=== PATIENT | female | born 1965 | race Hispanic/Latino ===

== ENCOUNTER 2021-04-03 22:15 | Emergency (ER) | payer OTHER, SELFPAY ==
[2021-04-03 22:17] VITALS: BP 153/83; PULSE 80; RESP 18; TEMP 37.1; O2SAT 100
[2021-04-03 22:36] LABS: RBC Urine 30-100/HPF (0-5/HPF)
[2021-04-03 22:37] LABS: Squamous Epithelial Cell Urine 1-5 /HPF (0-5/HPF); WBC Urine 30-100/HPF (0-5/HPF)
[2021-04-03 22:38] LABS: Bacteria Urine Moderate (10-30); Culture Indicated Urine Specimen Cultured
--- NOTE | 2021-04-03 22:47 | ED_ITS ---
HPI - General Adult General Chief complaint: Urogenital-Female Stated complaint: PEEING BLOOD UTI Time Seen by Provider: 04/03/21 22:43 Source: patient Mode of arrival: Ambulatory Limitations: no limitations History of Present Illness HPI narrative: Patient is a 56-year-old female here for evaluation of blood in her urine and dysuria and frequency. States the symptoms started earlier today. Feels fairly uncomfortable with urinating. No back pain. No vomiting. Related Data Home Medications Medication Instructions Recorded Confirmed alpha lipoic acid 200 mg capsule 200 mg PO DAILY 08/11/20 08/11/20 ascorbic acid 100 mg-elderberry tab PO 08/11/20 08/11/20 fruit 50 mg chewable tablet coenzyme Q10 200 mg/gram oral mg PO 08/11/20 08/11/20 powder gabapentin 400 mg capsule 400 mg PO TID 08/11/20 08/11/20 loratadine 10 mg tablet 10 mg PO DAILY 08/11/20 08/11/20 metoprolol tartrate 50 mg tablet 50 mg PO BID 08/11/20 08/11/20 milk thistle 150 mg capsule 300 mg PO DAILY 08/11/20 08/11/20 multivitamin 1 cap PO DAILY 08/11/20 08/11/20 omega-3 fatty acids 1,000 mg 1,000 mg PO DAILY 08/11/20 08/11/20 capsule tramadol 50 mg tablet 50 mg PO DAILY PRN 08/11/20 08/11/20 turmeric 400 mg capsule mg PO 08/11/20 08/11/20 Previous Rx's Medication Instructions Recorded phenazopyridine [Pyridium] 100 mg PO TID PRN #6 tab 04/03/21 sulfamethoxazole 800 1 tab PO BID #10 tab 04/03/21 mg-trimethoprim 160 mg tablet sulfamethoxazole-trimethoprim 1 tab PO BID 3 Days #6 tab 04/03/21 [Bactrim DS] Allergies Allergy/AdvReac Type Severity Reaction Status Date / Time droperidol [From Inapsine] Allergy Verified 08/11/20 13:10 prochlorperazine Allergy Verified 08/11/20 13:10 [From Compazine] Review of Systems Constitutional Constitutional: Reports fatigue Genitourinary Genitourinary: Reports hematuria, Reports dysuria, Reports urinary hesitancy and Reports urinary urgency Genitourinary: Reports hematuria, Reports dysuria, Reports urinary hesitancy and Reports urinary urgency Musculoskeletal Musculoskeletal: Reports system reviewed and no additional complaints, except as documented Endocrine Endocrine: Reports fatigue Hematologic/Lymphatic On Anticoagulants: No Patient History Medical History Emphysema lung Liver enzyme elevation Middle lobe syndrome Peripheral neuropathy Surgical History History of lung surgery Social History Smoking Status: Never smoker Smoking Status: Never smoker Exam Initial Vital Signs Initial Vital Signs: Vital Signs Temperature 98.7 F 04/03/21 22:17 Pulse Rate 80 04/03/21 22:17 Respiratory Rate 18 04/03/21 22:17 Blood Pressure 153/83 H 04/03/21 22:17 Pulse Oximetry 100 04/03/21 22:17 Const General: cooperative, healthy appearing and comfortable Resp Effort & Inspection: normal respiratory effort Cardio Rate: regular rate Skin Lesions: no lesions Rashes: no rashes Neuro General: patient alert and patient awake Extrem General: normal to inspection Course Orders Ordered: ED Orders 04/03/21 22:29 Urine Culture Stat Urine Microscopic Stat Discontinued Medications Phenazopyridine HCl (Phenazopyridine 100 Mg Tablet) 100 mg PO NOW ONE Stop: 04/03/21 22:49 Last Admin: 04/03/21 22:55 Dose: 100 mg Documented by: SHERON Trimethoprim/Sulfamethoxazole (Trimeth/Sulfa 160/800 (Ds) Tablet) 1 tab PO NOW ONE Stop: 04/03/21 22:49 Last Admin: 04/03/21 22:55 Dose: 1 tab Documented by: SHERON Vital Signs Vital signs: Vital Signs - 8 hr 04/03/21 22:17 Temperature 98.7 F Pulse Rate 80 Respiratory Rate 18 Blood Pressure 153/83 H Pulse Oximetry 100 Medical Decision Making Lab Data Labs: Lab Results 04/03/21 Range/Units 22:29 Urine RBC 30-100/hpf H (0-5/HPF) Urine WBC 30-100/hpf H (0-5/HPF) Ur Squamous Epith Cells 1-5 /hpf (0-5/HPF) Urine Bacteria Moderate (10-30) H (None) Ur Culture Indicated? Specimen cultured Urine Dip Bedside Urine Glucose Negative Bedside Urine Bilirubin - Negative Bedside Urine Ketone - Negative Urine Specific [place] 1.010 Bedside Urine Occult Blood +++ Bedside Urine pH 6 Bedside Urine Protein + 30 Bedside Urine Urobilinogen - Negative Bedside Urine Nitrite - Negative Bedside Urine Leukocytes ++ 125 Esterase Point of care testing: Urine Dip Bedside Urine Glucose Negative Bedside Urine Bilirubin - Negative Bedside Urine Ketone - Negative Urine Specific [place] 1.010 Bedside Urine Occult Blood +++ Bedside Urine pH 6 Bedside Urine Protein + 30 Bedside Urine Urobilinogen - Negative Bedside Urine Nitrite - Negative Bedside Urine Leukocytes ++ 125 Esterase MDM Narrative Medical decision making narrative: History and physical exam and urinalysis today is consistent with urinary tract infection. Low suspicion for pyelonephritis. Will start on antibiotics and was given the 1st dose here in the emergency department. She was informed that there was a urine culture pending at the time of her discharge and will contact her if we need to change in antibiotics. She expressed understanding and agreement. Discharge Plan Departure Patient Disposition: Home Clinical Impression: Urinary tract infection, Hematuria Instructions: DI for Urinary Tract Infection (UTI) Activity Restrictions/Additional Instructions: Start taking the antibiotics as directed. Contact your primary provider for a follow-up. Return to the emergency department for any new or worsening symptoms Prescriptions: New phenazopyridine [Pyridium] 100 mg tablet 100 mg PO TID PRN (Reason: pain) Qty: 6 RF: 0 sulfamethoxazole-trimethoprim [Bactrim DS] 800-160 mg tablet 1 tab PO BID 3 Days Qty: 6 RF: 0 No Action sulfamethoxazole-trimethoprim [Bactrim DS] 800-160 mg tablet 1 tab PO BID Qty: 10 RF: 0 metoprolol tartrate 50 mg tablet 50 mg PO BID RF: 0 loratadine [Claritin] 10 mg tablet 10 mg PO DAILY RF: 0 gabapentin 400 mg capsule 400 mg PO TID RF: 0 alpha lipoic acid 200 mg capsule 200 mg PO DAILY RF: 0 tramadol 50 mg tablet 50 mg PO DAILY PRN (Reason: pain) RF: 0 H2Q CoQ10 200 mg/gram powder PO RF: 0 ascorbic acid-elderberry fruit [Airborne (elderberry)] 100-50 mg tablet,chewable PO RF: 0 multivitamin Capsule 1 cap PO DAILY RF: 0 turmeric 400 mg capsule PO RF: 0 omega-3 fatty acids [Fish Oil Concentrate] 1,000 mg capsule 1,000 mg PO DAILY RF: 0 milk thistle 150 mg capsule 300 mg PO DAILY RF: 0 Referrals: Reagan Steen ARNP [Primary Care Provider] -
[2021-04-03] MEDS: TRIMETH/SULFA 160/800 (DS) TABLET 1 TAB PO (22:55)
[2021-04-03] MEDS: PHENAZOPYRIDINE 100 MG TABLET PO (22:55)
== END 2021-04-03 22:57 | disposition home or self-care (01) ==
PROVIDERS: Emergency Provider Emergency Medicine; PCP Registered Nurse Diabetes Educator
DX: N39.0 Urinary tract infection, site not specified (principal); R31.9 Hematuria, unspecified; R30.0 Dysuria
CPT/HCPCS: 81003; 81015; 87086; 99283

== ENCOUNTER → 2021-08-14 14:51 | Outpatient (CLI) | payer OTHER, SELFPAY ==
[2021-08-14 15:52] LABS: Appearance Urine UA CLEAR; Bilirubin Urine UA NEGATIVE (NEGATIVE); Color Urine UA YELLOW; Glucose Urine UA NEGATIVE (Negative); Ketones Urine UA NEGATIVE (NEGATIVE); Leukocyte Esterase Urine UA NEGATIVE (NEGATIVE); Nitrite Urine UA NEGATIVE (Negative); Occult Blood Urine UA NEGATIVE (Negative); Protein Urine UA NEGATIVE (Negative); Urobilinogen Urine UA 0.2 E.U./dL (0.2)
[2021-08-14 16:04] LABS: Bacteria Urine None Seen; Culture Indicated Urine Cult Not Indicated; RBC Urine None Seen (0-5/HPF); Squamous Epithelial Cell Urine 0-1 /HPF (0-5/HPF); WBC Urine 0-1/HPF (0-5/HPF)
== END ==
PROVIDERS: PCP Registered Nurse Diabetes Educator; Referring Provider Registered Nurse Diabetes Educator; Visit Provider Registered Nurse Diabetes Educator
DX: R30.0 Dysuria (principal)
CPT/HCPCS: 81001; 87086

== ENCOUNTER → 2021-10-05 09:10 | Outpatient (CLI) | payer OTHER, SELFPAY ==
[2021-10-05 09:51] LABS: Hematocrit 41.3 % (36-46); Hemoglobin 14.2 g/dL (12.0-16.0); Mean Corpuscular HGB Conc 34.5 % (30-36); Mean Corpuscular Hemoglobin 28.8 PG (26-34); Mean Corpuscular Volume 83.6 fL (80-100); Platelet Count 279 X10^3/uL (150-400); Red Blood Cell Count 4.95 X10^6/uL (4.0-5.2); Red Cell Distribution Width 13.4 % (11.6-14.8); White Blood Cell Count 5.9 X10^3/uL (4.5-11.0)
[2021-10-05 10:34] LABS: Alanine Aminotransferase 34 IU/L (<35); Albumin 4.8 g/dL (3.5-5.0); Albumin Globulin Ratio 1.7 (1.0-2.8); Alkaline Phosphatase 72 U/L (38-126); Aspartate Aminotransferase 39 IU/L (14-36); BUN Creatinine Ratio 16.2 (6-22); Bilirubin Total 1.1 mg/dL (0.2-1.3); Blood Urea Nitrogen 11 mg/dL (7-17); Calcium 10.1 mg/dL (8.4-10.2); Carbon Dioxide 27 mmol/L (22-32); Chloride 104 mmol/L (98-107); Cholesterol 246 mg/dL (140-199); Estimated Glomerular Filt Rate > 60.0 mL/min (>60); Globulin 2.9 g/dL (1.7-4.1); Glucose 104 mg/dL (70-100); HDL Cholesterol 47 mg/dL (40-60); HEMOLYSIS < 15 (0-50); LDL Cholesterol Calculated 169 mg/dL (<100); Potassium 4.2 mmol/L (3.4-5.1); Sodium 140 mmol/L (137-145); Total Protein 7.7 g/dL (6.3-8.2); Triglycerides 150 mg/dL (35-150)
[2021-10-05 10:58] LABS: TSH w/ Reflex to FT4 1.57 uIU/mL (0.47-4.68)
[2021-10-06 03:05] LABS: Hepatitis B Surf AB Quant 761.6 mIU/mL (Immunity>9.9)
== END ==
PROVIDERS: PCP Registered Nurse Diabetes Educator; Referring Provider Registered Nurse Diabetes Educator; Visit Provider Registered Nurse Diabetes Educator
DX: R76.8 Other specified abnormal immunological findings in serum (principal); E78.2 Mixed hyperlipidemia; R74.8 Abnormal levels of other serum enzymes; I10 Essential (primary) hypertension
CPT/HCPCS: 36415; 80053; 80061; 84443; 85027; 86706

== ENCOUNTER → 2021-11-10 08:31 | Outpatient (ROUT) | payer OTHER, SELFPAY | PROVIDERS: PCP Registered Nurse Diabetes Educator; Visit Provider Registered Nurse Diabetes Educator | DX: N39.0 Urinary tract infection, site not specified (principal) | CPT/HCPCS: 87086 ==

== ENCOUNTER → 2022-08-03 10:56 | Outpatient (CLI) | payer OTHER, SELFPAY ==
--- NOTE | 2022-08-03 10:58 | DI.MG.S_ITS ---
BILATERAL DIGITAL SCREENING MAMMOGRAM 3D/2D WITH CAD: 08/03/2022 CLINICAL: Routine screening. Baseline exam by default. No prior exams were available for comparison. Both breasts are heterogeneously dense, which may obscure small masses (category c / 51-75% glandular tissue). Current study was also evaluated with a Computer Aided Detection (CAD) system. There are multiple oval asymmetries in the right breast inferior lateral quadrant middle depth. There is an oval high density focal asymmetry in the left breast at 12 o'clock middle depth. No other significant masses or calcifications are seen in either breast. IMPRESSION: INCOMPLETE: NEEDS ADDITIONAL IMAGING EVALUATION The multiple oval asymmetries in the right breast inferior lateral quadrant middle depth are indeterminate. Additional views with possible ultrasound are recommended. The oval high density focal asymmetry in the left breast at 12 o'clock middle depth is indeterminate. Additional views with possible ultrasound are recommended. Based on the Tyrer Cuzick model (a risk assessment model) the patient's lifetime risk is 10.1% and her 10 year risk is 3.9%. According to the ACR, ACS, and NCCN guidelines, an annual breast MRI exam along with mammogram is recommended if the patient's lifetime risk is 20% or greater. This exam was interpreted at Station ID: [id number]. NOTE: For mammograms, a report in lay terms will be sent to the patient. Approximately 15% of breast malignancies will not be visualized mammographically. In the management of a palpable breast mass, a negative mammogram must not discourage biopsy of a clinically suspicious lesion. Electronically Signed By: Dipti bravo/lola:08/03/2022 12:21:52 letter sent: Additional Imaging Needed ACR BI-RADS Category 0: Incomplete 3340F
== END ==
PROVIDERS: PCP Registered Nurse Diabetes Educator; Referring Provider Registered Nurse Diabetes Educator; Visit Provider Registered Nurse Diabetes Educator
DX: Z12.31 Encounter for screening mammogram for malignant neoplasm of breast (principal)
CPT/HCPCS: 77063; 77067

== ENCOUNTER 2022-08-13 18:43 | Emergency (ER) | payer OTHER, SELFPAY ==
[2022-08-13] VITALS (19 sets, daily range): BP systolic 157–227; BP diastolic 75–107; PULSE 64–90; RESP 14–25; TEMP 36.5; O2SAT 99–100; BMI 24.7
--- NOTE | 2022-08-13 19:01 | DI.RAD.S_ITS ---
PROCEDURE: XR CHEST 1V INDICATIONS: chest pain TECHNIQUE: One view of the chest was acquired. COMPARISON: None. FINDINGS: Surgical changes and devices: None. Lungs and pleura: Lungs are clear. No pleural effusions or pneumothorax. Mediastinum: Mediastinal contours appear normal. Heart size is normal. Bones and chest wall: No suspicious bony lesions. Overlying soft tissues appear unremarkable. IMPRESSION: No acute cardiopulmonary pathology. Dictated by: Sung Nair M.D. on 08/13/2022 at 19:23 Approved by: Sung Nair M.D. on 08/13/2022 at 19:23
[2022-08-13 19:13] LABS: Add Manual Diff / Slide Review NO; Basophils Absolute Auto 0 /uL (0-100); Basophils Percent Auto 0.5 % (0-2); Eosinophils Absolute Auto 100 /uL (0-450); Eosinophils Percent Auto 0.9 % (2-4); Hematocrit 41.7 % (36-46); Hemoglobin 14.6 g/dL (12.0-16.0); Lymphocytes Absolute Auto 2600 /uL (1100-4500); Lymphocytes Percent Auto 34.7 % (25-40); Mean Corpuscular Hemoglobin 29.4 PG (26-34); Mean Corpuscular Volume 83.9 fL (80-100); Monocytes Absolute Auto 400 /uL (0-900); Monocytes Percent Auto 5.4 % (3-14); Neutrophils Absolute Auto 4400 /uL (1500-7000); Neutrophils Percent Auto 58.5 % (50-75); Platelet Count 241 X10^3/uL (150-400); Red Blood Cell Count 4.97 X10^6/uL (4.0-5.2); Red Cell Distribution Width 13.8 % (11.6-14.8); White Blood Cell Count 7.5 X10^3/uL (4.5-11.0)
--- NOTE | 2022-08-13 19:16 | PC.NURSE ---
Iv placed by another nurse
--- NOTE | 2022-08-13 19:18 | ED_ITS ---
HPI - Chest Pain General Chief Complaint: Chest Pain Stated Complaint: chest pain Time Seen by Provider: 08/13/22 19:08 Source: patient and EMS Mode of arrival: EMS Limitations: no limitations History of Present Illness HPI narrative: 57-year-old female who arrived by EMS for evaluation of chest discomfort. She did take an aspirin prior to arrival. She stated that her symptoms started after she was moving some heavy pots of plants while at home. Describes it as a burning sharp sensation. It is improved from its onset but not completely resolved. Not worse with breathing or palpation. Has never had anything like this in the past. Does have a history of SVT. Does take metoprolol. Has not taken her metoprolol today. No history of high blood pressure. No lower extremity swelling Related Data Home Medications Medication Instructions Recorded Confirmed alpha lipoic acid 200 mg capsule 200 mg PO DAILY 08/11/20 08/09/22 ascorbic acid 100 mg-elderberry tab PO 08/11/20 08/09/22 fruit 50 mg chewable tablet (Airborne (elderberry)) coenzyme Q10 200 mg/gram oral mg PO 08/11/20 08/09/22 powder (H2Q CoQ10) gabapentin 400 mg capsule 400 mg PO TID 08/11/20 08/09/22 loratadine 10 mg tablet (Claritin) 10 mg PO DAILY 08/11/20 08/09/22 milk thistle 150 mg capsule 300 mg PO DAILY 08/11/20 08/09/22 multivitamin 1 cap PO DAILY 08/11/20 08/09/22 omega-3 fatty acids 1,000 mg 1,000 mg PO DAILY 08/11/20 08/09/22 capsule (Fish Oil Concentrate) tramadol 50 mg tablet 50 mg PO DAILY PRN pain 08/11/20 08/09/22 turmeric 400 mg capsule mg PO 08/11/20 08/09/22 Previous Rx's Medication Instructions Recorded albuterol sulfate 90 mcg/actuation 2 puff inhalation Q4-6H PRN 08/10/21 aerosol inhaler shortness of breath or wheezing #8.5 grams sulfamethoxazole 400 1 tab PO DAILY PRN prevention of 11/09/21 mg-trimethoprim 80 mg tablet UTI #30 tabs (Bactrim) metoprolol tartrate 50 mg tablet 50 mg PO BID #180 tabs 07/25/22 omeprazole 20 mg capsule,delayed 20 mg PO DAILY #90 caps 07/25/22 release trazodone 50 mg tablet 50 mg PO BEDTIME PRN insomnia #30 08/09/22 tabs Allergies Allergy/AdvReac Type Severity Reaction Status Date / Time droperidol [From Inapsine] Allergy Verified 08/13/22 19:01 prochlorperazine Allergy Verified 08/13/22 19:01 [From Compazine] Review of Systems Review of Systems ROS Unobtainable: All systems reviewed & are unremarkable except as noted in HPI and below Patient History Medical History Adjustment disorder with anxiety Adjustment insomnia Emphysema lung History of cardiac dysrhythmia Hypertension Impaired fasting blood sugar Liver enzyme elevation Middle lobe syndrome Mitral valve prolapse Mixed dyslipidemia Peripheral neuropathy Surgical History History of lung surgery Social History Smoking Status: Never smoker Smoking Status: Never smoker alcohol intake frequency: 0-2 drinks per day Substance Use Type: marijuana Exam Initial Vital Signs Initial Vital Signs: Vital Signs Blood Pressure 227/107 H 08/13/22 18:46 Const General: cooperative and comfortable HENMT Head: normal to inspection and normocephalic Chest Chest: No crepitus and No tenderness Resp Effort & Inspection: normal respiratory effort Auscultation: clear to auscultation bilaterally Cardio Rate: regular rate Rhythm: regular rhythm GI Inspection: normal to inspection Skin General: no rashes or lesions noted Neuro General: patient alert, patient awake, patient oriented x3 and moves all extremities Extrem General: normal to inspection and capillary refill normal Psych Appearance: grossly normal and well kempt Scores HEART Score Heart Score history: Slightly Suspicious Heart Score EKG: Non-Specific repolarization disturbance Heart Score Age: 45-64 years old Heart Score risk factors: 1-2 risk factors Heart Score troponin: < or = to normal limit Heart Score Total: 3 Course Orders Ordered: ED Orders 08/13/22 19:01 XR chest 1V Stat EKG-12 Lead Stat 08/13/22 20:55 Troponin & CK Cardiac Panel Stat Discontinued Medications Metoprolol Tartrate (Metoprolol Ir 25 Mg Tablet) 50 mg PO NOW ONE Stop: 08/13/22 20:33 Last Admin: 08/13/22 20:48 Dose: 50 mg Documented By: MARICRUZ Vital Signs Vital signs: Vital Signs - 8 hr 08/13/22 20:00 08/13/22 20:25 08/13/22 20:25 Pulse Rate 74 79 Respiratory Rate 15 16 Blood Pressure 168/89 H Pulse Oximetry 100 100 Oxygen Delivery Method 08/13/22 20:30 08/13/22 20:30 08/13/22 20:40 Pulse Rate 80 74 Respiratory Rate 25 H 16 Blood Pressure 159/91 H Pulse Oximetry 100 99 Oxygen Delivery Method 08/13/22 20:40 08/13/22 20:50 08/13/22 20:51 Pulse Rate 76 80 Respiratory Rate 21 20 Blood Pressure 159/91 H Pulse Oximetry 100 100 Oxygen Delivery Method 08/13/22 21:00 08/13/22 21:00 08/13/22 21:30 Pulse Rate 83 Respiratory Rate 22 Blood Pressure 183/92 H 157/93 H Pulse Oximetry 100 Oxygen Delivery Method 08/13/22 21:30 08/13/22 22:00 08/13/22 22:00 Pulse Rate 65 64 Respiratory Rate 16 16 Blood Pressure 164/88 H Pulse Oximetry 100 100 Oxygen Delivery Method Room Air 08/13/22 22:10 08/13/22 22:10 Pulse Rate 67 Respiratory Rate 20 Blood Pressure 165/88 H Pulse Oximetry 100 Oxygen Delivery Method MDM - Chest Pain Lab Data Attestation: I reviewed the patient's lab results. Result diagrams: 08/13/22 18:50 08/13/22 18:50 Labs: Lab Results 08/13/22 08/13/22 08/13/22 Range/Units 18:50 18:50 20:55 WBC 7.5 (4.5-11.0) X10^3/uL RBC 4.97 (4.0-5.2) X10^6/uL Hgb 14.6 (12.0-16.0) g/dL Hct 41.7 (36-46) % MCV 83.9 (80-100) fL MCH 29.4 (26-34) PG MCHC 35.0 (30-36) % RDW 13.8 (11.6-14.8) % Plt Count 241 (150-400) X10^3/uL Neut % (Auto) 58.5 (50-75) % Lymph % (Auto) 34.7 (25-40) % [place] % (Auto) 5.4 (3-14) % Eos % (Auto) 0.9 L (2-4) % Baso % (Auto) 0.5 (0-2) % Neut # (Auto) 4400 (8324-3172) /uL Lymph # (Auto) 2600 (5744-4603) /uL [place] # (Auto) 400 (0-900) /uL Eos # (Auto) 100 (0-450) /uL Baso # (Auto) 0 (0-100) /uL Sodium 140 (137-145) mmol/L Potassium 3.4 (3.4-5.1) mmol/L Chloride 104 (98-107) mmol/L Carbon Dioxide 24 (22-32) mmol/L BUN 11 (7-17) mg/dL Creatinine 0.68 (0.52-1.04) mg/dL Estimated GFR > 60 (>60) mL/min BUN/Creatinine Ratio 16.2 (6-22) Glucose 118 H (70-100) mg/dL Calcium 9.7 (8.4-10.2) mg/dL Magnesium 1.9 (1.6-2.3) mg/dL Total Bilirubin 1.5 H (0.2-1.3) mg/dL AST 43 H (14-36) IU/L ALT 44 H (<35) IU/L Alkaline Phosphatase 100 (38-126) U/L Total Creatine Kinase 71 56 (30-135) U/L CK-MB (CK-2) TNP TNP CK-MB (CK-2) Rel Index TNP TNP Troponin I < 0.012 < 0.012 (0.01-0.034) ng/mL Total Protein 8.4 H (6.3-8.2) g/dL Albumin 4.8 (3.5-5.0) g/dL Globulin 3.6 (1.7-4.1) g/dL Albumin/Globulin Ratio 1.3 (1.0-2.8) Lipase 78 (23-300) U/L Imaging Data Chest x-ray: Radiologist's Impression: [address] [address] XRay Report Signed Patient: Gloria Castano MR#: [id number] : 1965 Acct:[id number] Age/Sex: 57 / F Date of Service: 08/13/22 Loc: ED Accession Number: [id number] ?? Procedure: XR chest 1V Ordering Provider: Cody Meehan D.O. PROCEDURE:? XR CHEST 1V ? INDICATIONS:? chest pain ? TECHNIQUE:? One view of the chest was acquired.? ? COMPARISON:? None. ? FINDINGS:? ? Surgical changes and devices:? None.? ? Lungs and pleura:? Lungs are clear.? No pleural effusions or pneumothorax.? ? Mediastinum:? Mediastinal contours appear normal.? Heart size is normal.? ? Bones and chest wall:? No suspicious bony lesions.? Overlying soft tissues appear unremarkable.? ? IMPRESSION:? No acute cardiopulmonary pathology. ? ? Dictated by: Sung Nair M.D. on 08/13/2022 at 19:23 ? ? Approved by: Sung Nair M.D. on 08/13/2022 at 19:23?? ECG Data Attestation: I personally reviewed and interpreted this ECG as follows: Interpretation: Sinus rhythm Ventricular rate 82 Normal axis Normal QRS Normal QTC Nonspecific ST T wave changes MDM Narrative Medical decision making narrative: Low risk heart score, nonspecific changes in the EKG, troponins negative x2. Chest x-ray is unremarkable. Patient is now asymptomatic. Will discharge patient home with instructions to continue to take her blood pressure as she may need changes in his medications. She will contact her primary doctor to discuss further risk stratification. She was given return precautions. She expressed understanding and agreement. Discharge Plan Departure Patient Disposition: Home Clinical Impression: Atypical chest pain Instructions: DI for Atypical Chest Pain Activity Restrictions/Additional Instructions: Continue to take all of your medications as directed. Take your blood pressure at home like we discussed and contact your primary provider for a follow-up. Return to the emergency department for any new or worsening symptoms. Prescriptions: No Action omeprazole 20 mg capsule,delayed release(DR/EC) 20 mg PO DAILY Qty: 90 0RF metoprolol tartrate 50 mg tablet 50 mg PO BID Qty: 180 0RF trazodone 50 mg tablet 50 mg PO BEDTIME PRN (Reason: insomnia) Qty: 30 3RF Rx Instructions: If ineffective may increase to 2 tabs at bedtime as needed loratadine [Claritin] 10 mg tablet 10 mg PO DAILY gabapentin 400 mg capsule 400 mg PO TID alpha lipoic acid 200 mg capsule 200 mg PO DAILY tramadol 50 mg tablet 50 mg PO DAILY PRN (Reason: pain) H2Q CoQ10 200 mg/gram powder PO ascorbic acid-elderberry fruit [Airborne (elderberry)] 100-50 mg tablet,chewable PO multivitamin Capsule 1 cap PO DAILY turmeric 400 mg capsule PO omega-3 fatty acids [Fish Oil Concentrate] 1,000 mg capsule 1,000 mg PO DAILY milk thistle 150 mg capsule 300 mg PO DAILY Rx Instructions: give with meal/snack albuterol sulfate 90 mcg/actuation HFA aerosol inhaler 2 puff inhalation Q4-6H PRN (Reason: shortness of breath or wheezing) Qty: 8.5 3RF sulfamethoxazole-trimethoprim [Bactrim] 400-80 mg tablet 1 tab PO DAILY PRN (Reason: prevention of UTI) Qty: 30 3RF Rx Instructions: Take 1 tab after sex to prevent UTI Referrals: Reagan Steen ARNP [Primary Care Provider] - Visit Report Forms: Patient Portal/API
[2022-08-13 19:20] LABS: Alanine Aminotransferase 44 IU/L (<35); Albumin 4.8 g/dL (3.5-5.0); Albumin Globulin Ratio 1.3 (1.0-2.8); Alkaline Phosphatase 100 U/L (38-126); Aspartate Aminotransferase 43 IU/L (14-36); BUN Creatinine Ratio 16.2 (6-22); Bilirubin Total 1.5 mg/dL (0.2-1.3); Blood Urea Nitrogen 11 mg/dL (7-17); Calcium 9.7 mg/dL (8.4-10.2); Carbon Dioxide 24 mmol/L (22-32); Chloride 104 mmol/L (98-107); Creatine Kinase 71 U/L (30-135); Estimated Glomerular Filt Rate > 60 mL/min (>60); Globulin 3.6 g/dL (1.7-4.1); Glucose 118 mg/dL (70-100); HEMOLYSIS 24 (0-50); Lipase 78 U/L (23-300); Magnesium 1.9 mg/dL (1.6-2.3); Potassium 3.4 mmol/L (3.4-5.1); Sodium 140 mmol/L (137-145); Total Protein 8.4 g/dL (6.3-8.2)
[2022-08-13 19:31] LABS: Troponin I < 0.012 ng/mL (0.01-0.034)
[2022-08-13] MEDS: METOPROLOL IR 25 MG TABLET 50 MG PO (20:48)
[2022-08-13 21:29] LABS: Creatine Kinase 56 U/L (30-135)
[2022-08-13 21:42] LABS: Troponin I < 0.012 ng/mL (0.01-0.034)
== END 2022-08-13 22:18 | disposition home or self-care (01) ==
PROVIDERS: Emergency Provider Emergency Medicine; PCP Registered Nurse Diabetes Educator
DX: R07.89 Other chest pain (principal)
CPT/HCPCS: 36415; 71045; 80053; 82550; 83690; 83735; 84484; 85025; 93005; 99284

== ENCOUNTER 2022-08-19 20:07 | Observation (INO) | payer OTHER, SELFPAY ==
[2022-08-19] VITALS (50 sets, daily range): BP systolic 150–213; BP diastolic 80–101; PULSE 65–135; RESP 13–24; TEMP 36.9; O2SAT 97–100
--- NOTE | 2022-08-19 20:15 | DI.RAD.S_ITS ---
PROCEDURE: XR CHEST 1V INDICATIONS: chest pain TECHNIQUE: One view of the chest was acquired. COMPARISON: [facility], CR, XR CHEST 1V, 08/13/2022, 19:05. FINDINGS: Surgical changes and devices: None. Lungs and pleura: Lungs are clear. No pleural effusions or pneumothorax. Mediastinum: Mediastinal contours appear normal. Heart size is normal. Bones and chest wall: No suspicious bony lesions. Overlying soft tissues appear unremarkable. IMPRESSION: 1. No acute cardiopulmonary disease. Dictated by: Anish Vivas M.D. on 08/19/2022 at 20:48 Approved by: Anish Vivas M.D. on 08/19/2022 at 20:49
[2022-08-19 21:02] LABS: Add Manual Diff / Slide Review NO; Basophils Absolute Auto 0 /uL (0-100); Basophils Percent Auto 0.3 % (0-2); Eosinophils Absolute Auto 100 /uL (0-450); Eosinophils Percent Auto 1.1 % (2-4); Hematocrit 43.5 % (36-46); Hemoglobin 15.3 g/dL (12.0-16.0); Lymphocytes Absolute Auto 2500 /uL (1100-4500); Lymphocytes Percent Auto 32.7 % (25-40); Mean Corpuscular HGB Conc 35.2 % (30-36); Mean Corpuscular Hemoglobin 29.4 PG (26-34); Mean Corpuscular Volume 83.5 fL (80-100); Monocytes Absolute Auto 500 /uL (0-900); Monocytes Percent Auto 5.8 % (3-14); Neutrophils Absolute Auto 4700 /uL (1500-7000); Neutrophils Percent Auto 60.1 % (50-75); Platelet Count 291 X10^3/uL (150-400); Red Blood Cell Count 5.21 X10^6/uL (4.0-5.2); Red Cell Distribution Width 13.5 % (11.6-14.8); White Blood Cell Count 7.8 X10^3/uL (4.5-11.0)
[2022-08-19] MEDS: NITROGLYCERIN 0.4 MG SL TAB SL (21:05)
[2022-08-19] MEDS: SODIUM CHLORIDE 0.9% 1,000 ML 150 ML IV (21:05)
[2022-08-19 21:10] LABS: Prothrombin Time 11.7 SECONDS (10.1-12.7)
--- NOTE | 2022-08-19 21:11 | PC.NURSE ---
Pt initially reporting chest tightness. Provider made aware. Pt then said it subsided. Provider again made aware. Per provider hold labetalol and give 0.4 nitro SL.
[2022-08-19 21:12] LABS: PTT Partial Thromboplastin Tim 33 SECONDS (26-36)
[2022-08-19 21:16] LABS: Alanine Aminotransferase 46 IU/L (<35); Albumin 5.1 g/dL (3.5-5.0); Albumin Globulin Ratio 1.3 (1.0-2.8); Alkaline Phosphatase 94 U/L (38-126); Aspartate Aminotransferase 38 IU/L (14-36); BUN Creatinine Ratio 11.9 (6-22); Bilirubin Total 1.7 mg/dL (0.2-1.3); Blood Urea Nitrogen 10 mg/dL (7-17); Carbon Dioxide 27 mmol/L (22-32); Chloride 102 mmol/L (98-107); Creatine Kinase 51 U/L (30-135); Estimated Glomerular Filt Rate > 60 mL/min (>60); Glucose 121 mg/dL (70-100); HEMOLYSIS < 15 (0-50); Lipase 95 U/L (23-300); Potassium 3.6 mmol/L (3.4-5.1); Sodium 143 mmol/L (137-145); Total Protein 9.1 g/dL (6.3-8.2)
[2022-08-19 21:25] LABS: NT-proBNP (BNP-Adult 18+) 52 pg/mL (<125)
[2022-08-19 21:27] LABS: Troponin I < 0.012 ng/mL (0.01-0.034)
--- NOTE | 2022-08-19 21:29 | ED.GENADULT ---
HPI - General Adult General Chief complaint: Hypertension Stated complaint: High BP Time Seen by Provider: 08/19/22 20:15 Source: patient Mode of arrival: Ambulatory Limitations: no limitations History of Present Illness HPI narrative: This is a 57-year-old female with history of hypertension, idiopathic peripheral neuropathy and GERD and chronically elevated bilirubin who presents with complaint of chest pressure. Patient states about a week she was given trazodone for insomnia took for 3 days she states she was all over the place she noticed her blood pressure was very high she was having some chest pressure at that time they thought it was reaction to the trazodone she was seen in the emergency with 2- troponins and discharged home. Her blood pressure has been up and down to 120s to 180s systolic and 80 to 110s and sometimes as high as 200 or 212 systolic. She states she is on metoprolol daily for her blood pressure she takes it twice daily 50 mg with no changes over the last 20 years. She describes pressure no pain, she states it is worse and she feels anxious or when her blood pressure is high. It does not seem to be exertional. She denies diaphoresis, no nausea or vomiting, no shortness of breath, no radiation other than to her neck. She feels panicky, she denies any swelling in her extremities. 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 No tobacco, alcohol or illicit. She states parents are healthy, grandfather in his 50s of a heart attack. Patient's primary care is Reagan Steen. She has not had her metoprolol this evening but did take an extra 25 mg dose at 2:00 p.m. today. Related Data Home Medications Medication Instructions Recorded Confirmed alpha lipoic acid 200 mg capsule 200 mg PO DAILY 08/11/20 08/20/22 coenzyme Q10 200 mg/gram oral 200 mg PO DAILY 08/11/20 08/20/22 powder (H2Q CoQ10) gabapentin 400 mg capsule 400 mg PO TID 08/11/20 08/20/22 loratadine 10 mg tablet (Claritin) 10 mg PO DAILY PRN Allergic 08/11/20 08/20/22 Symptoms milk thistle 150 mg capsule 300 mg PO DAILY 08/11/20 08/20/22 multivitamin 1 cap PO DAILY 08/11/20 08/20/22 omega-3 fatty acids 1,000 mg 1,000 mg PO DAILY 08/11/20 08/20/22 capsule (Fish Oil Concentrate) tramadol 50 mg tablet 50 mg PO DAILY PRN pain 08/11/20 08/20/22 turmeric 400 mg capsule 400 mg PO DAILY 08/11/20 08/20/22 Previous Rx's Medication Instructions Recorded albuterol sulfate 90 mcg/actuation 2 puff inhalation Q4-6H PRN 08/10/21 aerosol inhaler shortness of breath or wheezing #8.5 grams metoprolol tartrate 50 mg tablet 50 mg PO BID #180 tabs 07/25/22 omeprazole 20 mg capsule,delayed 20 mg PO DAILY #90 caps 07/25/22 release Allergies Allergy/AdvReac Type Severity Reaction Status Date / Time droperidol [From Inapsine] Allergy Verified 08/13/22 19:01 prochlorperazine Allergy Verified 08/13/22 19:01 [From Compazine] trazadone Allergy Severe Chest Pain Uncoded 08/14/22 12:30 Review of Systems Review of Systems ROS Unobtainable: All systems reviewed & are unremarkable except as noted in HPI and below Patient History Medical History Adjustment disorder with anxiety Adjustment insomnia Emphysema lung History of cardiac dysrhythmia Hypertension Impaired fasting blood sugar Liver enzyme elevation Middle lobe syndrome Mitral valve prolapse Mixed dyslipidemia Peripheral neuropathy Surgical History History of lung surgery Social History household members: spouse Smoking Status: Never smoker Smoking Status: Never smoker alcohol intake frequency: 0-2 drinks per day Substance Use Type: marijuana Exam Narrative Exam Narrative: GENERAL: Alert and oriented x three, well-appearing female in mild distress. HEENT: Head normocephalic, atraumatic, EOMI, pupils reactive, face symmetric, moist mucous membranes NECK: Supple, full range of motion CARDIOVASCULAR: Regular rate and rhythm without murmurs, rubs or gallops. No JVD. No swelling bilateral lower extremities. RESPIRATORY: Breath sounds equal bilaterally, no wheezes rales or rhonchi. ABDOMEN: Soft, nontender. Normoactive bowel sounds all 4 quadrants. No guarding or rebound, rigidity, no mass : No CVA tenderness EXTREMITIES: Normal range of motion, no clubbing or edema. Neurovascularly intact NEUROLOGICAL: Cranial nerves II through XII grossly intact. Moving all extremities SKIN: Warm, dry, no petechiae, no rashes or lesions. Initial Vital Signs Initial Vital Signs: Vital Signs Temperature 98.4 F 08/19/22 20:15 Pulse Rate 84 08/19/22 20:15 Respiratory Rate 16 08/19/22 20:15 Blood Pressure 212/100 H 08/19/22 20:15 Pulse Oximetry 98 08/19/22 20:15 Oxygen Delivery Method 08/19/22 20:15 Scores HEART Score Heart Score history: Moderately Suspicious Heart Score EKG: Normal Heart Score Age: 45-64 years old Heart Score risk factors: 1-2 risk factors Heart Score troponin: < or = to normal limit Heart Score Total: 3 Course Orders Ordered: ED Orders 08/19/22 20:15 XR chest 1V Stat 08/19/22 20:33 EKG-12 Lead Stat 08/19/22 20:35 Complete Blood Count AUTO DIFF Stat Comprehensive Metabolic Panel Stat Lipase Stat Lipid Panel Urgent Magnesium Urgent NT-proBNP (BNP-Adult 18+) Stat Partial Thromboplastin Time Stat Prothrombin Time INR Stat Troponin & CK Cardiac Panel Stat 08/19/22 22:35 Trop I [Troponin I] Stat 08/19/22 23:31 EKG-12 Lead Routine 08/19/22 23:42 Exercise treadmill NON NUC Urgent 08/19/22 23:43 EC echo doppler complete Urgent 08/19/22 23:44 Education, smoking cessation ONGOING 08/20/22 05:00 Basic Metabolic Panel Routine Troponin I Routine Acetaminophen (Acetaminophen 325 Mg Tablet) 650 mg PO Q6H PRN PRN Reason: Fever/Mild Pain (1-3) Albuterol (Albuterol 2.5 Mg/3 Ml Neb (Adult)) 2.5 mg INH Q4H PRN PRN Reason: Shortness Of Breath Or Wheezing Aspirin (Aspirin Ec 81 Mg Tablet) 81 mg PO DAILY [facility]O Clonazepam (Clonazepam 0.5 Mg Tablet) 0.25 mg PO BEDTIME PRN PRN Reason: anxiety Enoxaparin Sodium (Enoxaparin 40 Mg/0.4 Ml Syringe) 40 mg SUBCUT DAILY [facility] Gabapentin (Gabapentin 400 Mg Capsule) 400 mg PO TID [facility] Last Admin: 08/20/22 01:13 Dose: Not Given Documented By: BarbaraT Metoprolol Tartrate (Metoprolol Ir 50 Mg Tablet) 50 mg PO BID [facility] Morphine Sulfate (Morphine 2 Mg/Ml Inj) 2 mg IV Q5MIN PRN PRN Reason: Chest Pain Naloxone HCl (Naloxone 0.4 Mg/Ml Vial) 0.2 mg IV Q2MIN PRN PRN Reason: Opiate Reversal Nitroglycerin (Nitroglycerin 0.4 Mg Sl Tab) 0.4 mg SL [id number] PRN PRN Reason: Chest Pain Pantoprazole Sodium (Pantoprazole Dr 20 Mg Tablet) 20 mg PO DAILY [facility] Discontinued Medications Sodium Chloride (Normal Saline 0.9%) 1,000 mls @ 150 mls/hr IV CONT [facility] Last Infusion: 08/20/22 01:56 Dose: 0 mls/hr Documented By: Admin: 08/19/22 21:05 Dose: 150 mls/hr Documented By: VASILE Labetalol HCl (Labetalol 20 Mg/4 Ml Syringe) 10 mg IV NOW ONE Stop: 08/19/22 20:40 Last Admin: 08/19/22 23:04 Dose: Not Given Documented By: VASILE Metoprolol Tartrate (Metoprolol Ir 25 Mg Tablet) 50 mg PO NOW ONE Stop: 08/19/22 21:55 Last Admin: 08/19/22 22:01 Dose: 50 mg Documented By: NADIR Nitroglycerin (Nitroglycerin 0.4 Mg Sl Tab) 0.4 mg SL NOW ONE Stop: 08/19/22 20:40 Last Admin: 08/19/22 21:05 Dose: 0.4 mg Documented By: VASILE Consultations Consultation #1: TEAGAN Neil, discussed no issues with her regular metoprolol dose this evening. Plan for repeat troponin/EKG if still negative plan for chest pain observation. Will recontact after troponin and EKG are resulted. Vital Signs Vital signs: Vital Signs - 8 hr 08/19/22 20:15 08/19/22 21:05 08/19/22 20:19 Temperature 98.4 F Pulse Rate 84 102 H 88 Respiratory Rate 16 Blood Pressure 212/100 H 186/93 H Pulse Oximetry 98 100 Oxygen Delivery Method Room Air 08/19/22 20:20 08/19/22 20:20 08/19/22 20:25 Temperature Pulse Rate 86 88 Respiratory Rate Blood Pressure 213/100 H Pulse Oximetry 100 100 Oxygen Delivery Method 08/19/22 20:30 08/19/22 20:35 08/19/22 20:40 Temperature Pulse Rate 104 H 97 H 89 Respiratory Rate Blood Pressure Pulse Oximetry 100 100 100 Oxygen Delivery Method 08/19/22 20:41 08/19/22 20:41 08/19/22 20:45 Temperature Pulse Rate 91 H 90 Respiratory Rate Blood Pressure 200/93 H Pulse Oximetry 100 Oxygen Delivery Method 08/19/22 20:50 08/19/22 20:55 08/19/22 21:00 Temperature Pulse Rate 84 88 99 H Respiratory Rate Blood Pressure Pulse Oximetry 100 100 100 Oxygen Delivery Method 08/19/22 21:01 08/19/22 21:01 08/19/22 21:05 Temperature Pulse Rate 102 H 103 H Respiratory Rate 15 Blood Pressure 186/93 H Pulse Oximetry 100 100 Oxygen Delivery Method 08/19/22 21:10 08/19/22 21:10 08/19/22 21:14 Temperature Pulse Rate 111 H Respiratory Rate 19 Blood Pressure 181/82 H 192/100 H Pulse Oximetry 100 Oxygen Delivery Method 08/19/22 21:14 08/19/22 21:15 08/19/22 21:15 Temperature Pulse Rate 132 H 135 H Respiratory Rate 17 16 Blood Pressure 178/96 H Pulse Oximetry 99 99 Oxygen Delivery Method 08/19/22 21:20 08/19/22 21:20 08/19/22 21:25 Temperature Pulse Rate 105 H Respiratory Rate Blood Pressure 178/94 H 170/90 H Pulse Oximetry 99 Oxygen Delivery Method 08/19/22 21:25 08/19/22 21:30 08/19/22 21:30 Temperature Pulse Rate 81 80 Respiratory Rate 14 14 Blood Pressure 158/89 H Pulse Oximetry 99 97 Oxygen Delivery Method 08/19/22 21:35 08/19/22 21:35 08/19/22 21:40 Temperature Pulse Rate 80 Respiratory Rate 13 Blood Pressure 151/90 H 150/95 H Pulse Oximetry 99 Oxygen Delivery Method 08/19/22 21:40 08/19/22 21:45 08/19/22 21:45 Temperature Pulse Rate 84 80 Respiratory Rate Blood Pressure 157/101 H Pulse Oximetry 99 99 Oxygen Delivery Method 08/19/22 21:50 08/19/22 21:50 08/19/22 21:55 Temperature Pulse Rate 83 Respiratory Rate 17 Blood Pressure 182/86 H 160/80 H Pulse Oximetry 99 Oxygen Delivery Method 08/19/22 21:55 08/19/22 22:00 08/19/22 22:00 Temperature Pulse Rate 81 80 Respiratory Rate 16 22 Blood Pressure 166/88 H Pulse Oximetry 98 99 Oxygen Delivery Method 08/19/22 22:05 08/19/22 22:05 08/19/22 22:10 Temperature Pulse Rate 82 Respiratory Rate 21 Blood Pressure 168/90 H 195/95 H Pulse Oximetry 99 Oxygen Delivery Method 08/19/22 22:10 08/19/22 22:15 08/19/22 22:15 Temperature Pulse Rate 83 86 Respiratory Rate 18 15 Blood Pressure 182/88 H Pulse Oximetry 99 99 Oxygen Delivery Method 08/19/22 22:20 08/19/22 22:20 08/19/22 22:25 Temperature Pulse Rate 78 Respiratory Rate 15 Blood Pressure 194/89 H 172/85 H Pulse Oximetry 100 Oxygen Delivery Method 08/19/22 22:25 08/19/22 22:30 08/19/22 22:35 Temperature Pulse Rate 80 72 75 Respiratory Rate 18 22 24 Blood Pressure Pulse Oximetry 99 100 100 Oxygen Delivery Method 08/19/22 22:40 08/19/22 22:45 08/19/22 22:50 Temperature Pulse Rate 71 69 68 Respiratory Rate 15 Blood Pressure Pulse Oximetry 100 100 99 Oxygen Delivery Method 08/19/22 22:55 08/19/22 23:00 08/19/22 23:05 Temperature Pulse Rate 68 67 67 Respiratory Rate 16 16 Blood Pressure Pulse Oximetry 99 99 98 Oxygen Delivery Method 08/19/22 23:10 08/19/22 23:15 08/19/22 23:20 Temperature Pulse Rate 68 69 75 Respiratory Rate 17 17 21 Blood Pressure Pulse Oximetry 98 99 100 Oxygen Delivery Method 08/19/22 23:21 08/19/22 23:21 08/19/22 23:28 Temperature Pulse Rate 79 86 Respiratory Rate 20 24 Blood Pressure 194/95 H Pulse Oximetry 100 Oxygen Delivery Method 08/19/22 23:30 08/19/22 23:35 08/19/22 23:35 Temperature Pulse Rate 74 73 Respiratory Rate 18 Blood Pressure 164/93 H Pulse Oximetry 100 100 Oxygen Delivery Method 08/19/22 23:40 08/19/22 23:45 08/19/22 23:50 Temperature Pulse Rate 69 69 67 Respiratory Rate 17 16 16 Blood Pressure Pulse Oximetry 98 99 98 Oxygen Delivery Method Medical Decision Making Lab Data Result diagrams: 08/19/22 20:35 08/19/22 20:35 Labs: Lab Results 08/19/22 08/19/22 08/19/22 Range/Units 20:35 20:35 20:35 WBC 7.8 (4.5-11.0) X10^3/uL RBC 5.21 H (4.0-5.2) X10^6/uL Hgb 15.3 (12.0-16.0) g/dL Hct 43.5 (36-46) % MCV 83.5 (80-100) fL MCH 29.4 (26-34) PG MCHC 35.2 (30-36) % RDW 13.5 (11.6-14.8) % Plt Count 291 (150-400) X10^3/uL Neut % (Auto) 60.1 (50-75) % Lymph % (Auto) 32.7 (25-40) % [place] % (Auto) 5.8 (3-14) % Eos % (Auto) 1.1 L (2-4) % Baso % (Auto) 0.3 (0-2) % Neut # (Auto) 4700 (1035-9988) /uL Lymph # (Auto) 2500 (7790-6558) /uL [place] # (Auto) 500 (0-900) /uL Eos # (Auto) 100 (0-450) /uL Baso # (Auto) 0 (0-100) /uL PT 11.7 (10.1-12.7) SECONDS INR 1.0 (0.9-1.3) APTT 33 (26-36) SECONDS Sodium 143 (137-145) mmol/L Potassium 3.6 (3.4-5.1) mmol/L Chloride 102 (98-107) mmol/L Carbon Dioxide 27 (22-32) mmol/L BUN 10 (7-17) mg/dL Creatinine 0.84 (0.52-1.04) mg/dL Estimated GFR > 60 (>60) mL/min BUN/Creatinine Ratio 11.9 (6-22) Glucose 121 H (70-100) mg/dL Calcium 10.0 (8.4-10.2) mg/dL Magnesium (1.6-2.3) mg/dL Total Bilirubin 1.7 H (0.2-1.3) mg/dL AST 38 H (14-36) IU/L ALT 46 H (<35) IU/L Alkaline Phosphatase 94 (38-126) U/L Total Creatine Kinase 51 (30-135) U/L CK-MB (CK-2) TNP CK-MB (CK-2) Rel Index TNP Troponin I < 0.012 (0.01-0.034) ng/mL NT-Pro-B Natriuret Pep (<125) pg/mL Total Protein 9.1 H (6.3-8.2) g/dL Albumin 5.1 H (3.5-5.0) g/dL Globulin 4.0 (1.7-4.1) g/dL Albumin/Globulin Ratio 1.3 (1.0-2.8) Triglycerides (35-150) mg/dL Cholesterol (140-199) mg/dL LDL Cholesterol, Calc (<100) mg/dL HDL Cholesterol (40-60) mg/dL Lipase 95 (23-300) U/L 08/19/22 08/19/22 08/19/22 Range/Units 20:35 20:35 20:35 WBC (4.5-11.0) X10^3/uL RBC (4.0-5.2) X10^6/uL Hgb (12.0-16.0) g/dL Hct (36-46) % MCV (80-100) fL MCH (26-34) PG MCHC (30-36) % RDW (11.6-14.8) % Plt Count (150-400) X10^3/uL Neut % (Auto) (50-75) % Lymph % (Auto) (25-40) % [place] % (Auto) (3-14) % Eos % (Auto) (2-4) % Baso % (Auto) (0-2) % Neut # (Auto) (3083-5513) /uL Lymph # (Auto) (2936-6532) /uL [place] # (Auto) (0-900) /uL Eos # (Auto) (0-450) /uL Baso # (Auto) (0-100) /uL PT (10.1-12.7) SECONDS INR (0.9-1.3) APTT (26-36) SECONDS Sodium (137-145) mmol/L Potassium (3.4-5.1) mmol/L Chloride (98-107) mmol/L Carbon Dioxide (22-32) mmol/L BUN (7-17) mg/dL Creatinine (0.52-1.04) mg/dL Estimated GFR (>60) mL/min BUN/Creatinine Ratio (6-22) Glucose (70-100) mg/dL Calcium (8.4-10.2) mg/dL Magnesium 2.0 (1.6-2.3) mg/dL Total Bilirubin (0.2-1.3) mg/dL AST (14-36) IU/L ALT (<35) IU/L Alkaline Phosphatase (38-126) U/L Total Creatine Kinase (30-135) U/L CK-MB (CK-2) CK-MB (CK-2) Rel Index Troponin I (0.01-0.034) ng/mL NT-Pro-B Natriuret Pep 52 (<125) pg/mL Total Protein (6.3-8.2) g/dL Albumin (3.5-5.0) g/dL Globulin (1.7-4.1) g/dL Albumin/Globulin Ratio (1.0-2.8) Triglycerides 297 H (35-150) mg/dL Cholesterol 250 H (140-199) mg/dL LDL Cholesterol, Calc 138 H (<100) mg/dL HDL Cholesterol 53 (40-60) mg/dL Lipase (23-300) U/L 08/19/ Range/Units 22:35 WBC (4.5-11.0) X10^3/uL RBC (4.0-5.2) X10^6/uL Hgb (12.0-16.0) g/dL Hct (36-46) % MCV (80-100) fL MCH (26-34) PG MCHC (30-36) % RDW (11.6-14.8) % Plt Count (150-400) X10^3/uL Neut % (Auto) (50-75) % Lymph % (Auto) (25-40) % [place] % (Auto) (3-14) % Eos % (Auto) (2-4) % Baso % (Auto) (0-2) % Neut # (Auto) (0357-1368) /uL Lymph # (Auto) (5092-5338) /uL [place] # (Auto) (0-900) /uL Eos # (Auto) (0-450) /uL Baso # (Auto) (0-100) /uL PT (10.1-12.7) SECONDS INR (0.9-1.3) APTT (26-36) SECONDS Sodium (137-145) mmol/L Potassium (3.4-5.1) mmol/L Chloride (98-107) mmol/L Carbon Dioxide (22-32) mmol/L BUN (7-17) mg/dL Creatinine (0.52-1.04) mg/dL Estimated GFR (>60) mL/min BUN/Creatinine Ratio (6-22) Glucose (70-100) mg/dL Calcium (8.4-10.2) mg/dL Magnesium (1.6-2.3) mg/dL Total Bilirubin (0.2-1.3) mg/dL AST (14-36) IU/L ALT (<35) IU/L Alkaline Phosphatase (38-126) U/L Total Creatine Kinase (30-135) U/L CK-MB (CK-2) CK-MB (CK-2) Rel Index Troponin I < 0.012 (0.01-0.034) ng/mL NT-Pro-B Natriuret Pep (<125) pg/mL Total Protein (6.3-8.2) g/dL Albumin (3.5-5.0) g/dL Globulin (1.7-4.1) g/dL Albumin/Globulin Ratio (1.0-2.8) Triglycerides (35-150) mg/dL Cholesterol (140-199) mg/dL LDL Cholesterol, Calc (<100) mg/dL HDL Cholesterol (40-60) mg/dL Lipase (23-300) U/L Imaging Data Chest x-ray: Radiologist's Impression: Gloria Castano?(Marquita)??57??F??1965 ? Allergy/Adv: droperidol, prochlorperazine, [trazadone] (More??) Close Chest X-Ray (Signed) Anish Vivas - 08/19/22 Chest X-Ray (Signed) Sung Nair - 08/13/22 Mammogram Screening (Signed) Dipti Bacon - 08/03/22 [place] [address] XRay Report Signed Patient: Gloria Castano MR#: [id number] : 1965 Acct:[id number] Age/Sex: 57 / F Date of Service: 08/19/22 Loc: ED Accession Number: [id number] ?? Procedure: XR chest 1V Ordering Provider: Lindsay Maxwell D.O. PROCEDURE:? XR CHEST 1V ? INDICATIONS:? chest pain ? TECHNIQUE:? One view of the chest was acquired.? ? COMPARISON:[facility], , XR CHEST 1V, 08/13/2022, 19:05. ? FINDINGS:? ? Surgical changes and devices:? None.? ? Lungs and pleura:? Lungs are clear.? No pleural effusions or pneumothorax.? ? Mediastinum:? Mediastinal contours appear normal.? Heart size is normal.? ? Bones and chest wall:? No suspicious bony lesions.? Overlying soft tissues appear unremarkable.? ? IMPRESSION:? ? 1.? No acute cardiopulmonary disease. ? ? ? Dictated by: Anish Vivas M.D. on 08/19/2022 at 20:48 ? ? Approved by: Anish Vivas M.D. on 08/19/2022 at 20:49 ECG Data Attestation: I personally reviewed and interpreted this ECG as follows: Prior ECG tracings: available for review Interpretation: Sinus rhythm rate of 94 VT 126 QRS is 78 QTC [address] No acute ST elevation depression appreciated. AVR and V1 very symmetric. Nonspecific change. Patient has prior EKG from 08/13/2022 which appears similar. EKG 2. Sinus rhythm rate of 70 2p are 122 QRS 84 QTC of 4-7. No acute changes prior no dynamic changes noted. MDM Narrative Medical decision making narrative: This is a 57-year-old female with chest pressure that occurs when patient states she is hypertensive, unclear if the hypertension is the cause or a result of her chest pressure. It is not exertional she does seem to have an anxiety component but does have some radiation to the neck, she was hypertensive upon arrival improves when her blood pressure improves after a single nitro. Patient did not like the way she felt after the nitro. Gave her her evening dose of metoprolol which she normally takes. Labs show negative CBC, bilirubin is 1.7 was 1.5 on 08/13 but she states this is her normal baseline, lipase, troponin and chest x-ray are negative. No right upper quadrant pain on examination or recently. Plan for repeat troponin which is negative, repeat EKG shows no acute change. Discharge Plan Departure Patient Disposition: Admitted As Inpatient Clinical Impression: Chest pain, Hypertension Admit Date/Time: 08/19/22 23:54 Admit Provider: Emma Neil
[2022-08-19] MEDS: METOPROLOL IR 25 MG TABLET 50 MG PO (22:01)
[2022-08-19 23:14] LABS: Troponin I < 0.012 ng/mL (0.01-0.034)
--- NOTE | 2022-08-19 23:39 | PC.NURSE ---
2020: Pt reports intermittent, chest tightness for the past week that radiates up her neck. Pt reports having high blood pressure on and off all week long. States she feels her heart racing. Provider aware. 2334: Pt reports throat tightness. Denies chest pain. RT called for repeat EKG. Provider aware. RR WNL, and non-labored breathing. Pt talking in full sentences and able to swallow.
--- NOTE | 2022-08-19 23:42 | DI.NM.S_ITS ---
PROCEDURE: NM EXERCISE TREADMILL NON NUC COMPARISON: None. INDICATIONS: CP -HTN urgency FINDINGS: Rest ECG sinus rhythm. Shashi protocol 11:03, maximum heart rate 166 bpm (103% peak predicted), maximum blood pressure 160/115, 12.8 METS, PONCE -57%. Stress ECG sinus tachycardia, subtle diffuse ST segment depressions that do not meet criteria for ischemia; no ectopy or arrhythmia. No documented chest pain with exercise. IMPRESSION: No evidence of exercise-induced ischemia or arrhythmia. Uncontrolled blood pressure at rest and with exercise. Excellent exercise capacity. Dictated by: Sis Hurley D.O. on 08/20/2022 at 17:14 Approved by: Sis Hurley D.O. on 08/20/2022 at 17:17
--- NOTE | 2022-08-19 23:43 | DI.ECHO.S_ITS ---
[facility]---------+ [facility] +---------+ : : [address] : : : : [id number] : : : : Phone: [phone] Echocardiogram Report + + :Name: KENZIE ANGUIANO Study Date: 08/20/2022 Height: 63 in : :[facility] ReadingLocation: Weight: 145 lb : : Gender: Female BSA: 1.7 m2 : :: 1965 Age: 57 yrs BP: 121/75 mmHg: :Reason For Study: Chest pain : :Ordering Physician: CHARISSA, : :WILLIE Performed By: Hilton Al : :Referring: WILLIE CARRINGTON : + + Interpretation Summary The left ventricle is normal in size. The ejection fraction is estimated to be 65-70%. The right ventricle is normal in size and function. No significant valvular pathology seen. The IVC is of normal diameter and collapses greater than 50% with a sniff. This suggests a low right atrial pressure of 3 mm Hg. Procedure: A two-dimensional transthoracic echocardiogram with color flow and Doppler was performed. The study quality was technically adequate. There is no prior echocardiogram noted for this patient. The patient was in normal sinus rhythm during the exam. Left Ventricle: The left ventricle is normal in size. Proximal septal thickening is noted. There is no echo evidence for significant left ventricular outflow tract obstruction. There is no thrombus. Left ventricular systolic function is normal. The ejection fraction is estimated to be 65-70%. There are no focal wall motion abnormalities. Diastolic parameters suggest a relaxation abnormality of the left ventricle, consistent with probable normal filling pressures. Right Ventricle: The right ventricle is normal in size and function. Atria: Both atria are normal in size. The interatrial septum grossly appears intact with no obvious evidence for an atrial septal defect. Mitral Valve: The mitral valve is normal in structure and function. There is trace mitral regurgitation. Aortic Valve: The aortic valve is normal in structure and function. The aortic valve is trileaflet. There is no aortic valve stenosis. No aortic regurgitation is present. Tricuspid Valve: The tricuspid valve is normal in structure and function. No tricuspid regurgitation. Pulmonary artery pressures cannot be estimated because of the lack of a measurable TR jet velocity. Pulmonic Valve: The pulmonic valve is normal in structure and function. There is no pulmonic valvular regurgitation. Great Vessels: The aortic root is normal size. The dimensions of the ascending aorta are normal. The IVC is of normal diameter and collapses greater than 50% with a sniff. This suggests a low right atrial pressure of 3 mm Hg. Pericardium/ Pleura There is no pericardial effusion. There is no pleural effusion. MMode/2D Measurements & Calculations LVIDd: 4.2 cm LVOT diam: 2.0 cm LVIDs: 2.7 cm Ao root diam: 2.6 cm FS: 34.9 % asc Aorta Diam: 2.9 cm IVSd: 0.72 cm LVPWd: 0.64 cm LV harris. diameter/BSA (cm/m^2): 2.5 LV sys. diameter/BSA (cm/m^2): 1.6 LA A2 area: 17.2 cm2 RA long axis: 5.2 cm LA A4 area: 17.0 cm2 RA area: 12.4 cm2 LA length (vol): 5.5 cm RA vol: 25.4 ml LA vol: 45.2 ml RA : 15.1 ml/m2 LA vol index: 26.8 ml/m2 TAPSE: 2.1 cm Doppler Measurements & Calculations Ao V2 max: 142.7 cm/sec LVOT Max Gianfranco: 146.2 cm/sec Ao V2 mean: 99.2 cm/sec LV V1 max P.5 mmHg Ao max P.1 mmHg LV V1 VTI: 28.5 cm Ao mean P.4 mmHg KEVIN(I,D): 2.9 cm2 Ao V2 VTI: 29.6 cm KEVIN(V,D): 3.1 cm2 sev ratio: 0.96 KEVIN indexed to BSA (cm^2/m^2): 1.7 MV E max gianfranco: 65.5 cm/sec SV(LVOT): 86.6 ml MV A max gianfranco: 80.3 cm/sec MV E/A: 0.82 Med Peak E' Gianfranco: 6.0 cm/sec E/E' med: 10.9 Lat Peak E' Gianfranco: 9.0 cm/sec E/E' lat: 7.3 E/e' average: 9.1 MV dec time: 0.26 sec Reading Physician:09:53 AM
--- NOTE | 2022-08-19 23:49 | PM.HP.1 ---
History of Present Illness History of Present Illness Date Patient Seen: 08/19/22 Time Patient Seen: 23:50 Chief complaint: High BP Narrative: Gloria Castano is a 57-year-old female with history of hypertension, idiopathic peripheral neuropathy, GERD, adjustment disorder w/anxiety, emphysema and chronically elevated liver enzymes who presents with complaint of chest pressure, that feels like throat tightness that comes & goes, no known triggering factors. It does not seem to be exertional,?no radiation, occurs at rest, does not experience diaphoresis, headache, changes in vision, weakness, numbness tingling or shortness of breath with chest pressure discomfort.?She does complain of feeling shaky, and very poor because I don't want to Patient was given trazodone anxiety/ insomnia last week, after 3 days developed elevated B/P & chest pressure. Was seen in ED 08/13/2022: troponinsx2-negative, Normal EKG-D/C Home stable: atypical chest pain. Patient continues to report home B/P readings SBP 120-212/[id number]. Patient notes that she is been under increased stress and only recently developed a rapid onset of anxiety/insomia which is supported in chart history review. No prior history of anxiety, depression or panic attacks. Patient describes in depth worrying and anxiety over a prolifera including the war in [place], tick [employer], Facebook (social media), finances, and fear of dying. She is extremely anxious, with a rapid speech pattern and scattered thought process. 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 Patient has been on metoprolol 50 mg twice daily for approximately 20 years, states that her last stress and echo were over 10 years ago, but has had been under the care of a PCP. Decided in the last few days to increase metoprolol to t.i.d (50mg,25mg, 50mg), with no improvement in B/P. Patient verbalizes that when she takes her blood pressure, observes elevated readings she becomes anxious, then has increased chest pressure and has continued to repeat this cycle measuring blood pressure repeatedly I think I am having panic attacks. 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 Patient also had mammogram on 08/03/2022 that showed multiple oval asymmetries?in bilateral breast, she is having follow up for required further evaluation- she notes that she has no advised her of these findings. Patient exercises regularly, notes recent intentional 15 lb weight loss, non-smoker, no alcohol or illicit substances. Mother had hypertension, father atrial fibrillation, grandfather of a heart attack. Patient's primary care is Reagan Steen.? ? At time of admit patient is still extremely anxious provided significant patient education regarding permissive hypertension management and risk stratification. Anxiety and agitation continue but chest pressure has resolved. Patient denies shortness of breath, diaphoresis, FRANK, changes in vision, numbness, tingling, weakness, difficulty with swallowing or speech, balance or coordination issues, abdominal pain, nausea, vomiting, urinary symptoms, dysuria, urgency, frequency, hematuria, melena, hematochezia, swelling in her extremities, cough, congestion, nasal drainage, recent falls, new or changes to medication, recent travel, exposure to illnesses, recent illness injury or trauma.? Patient denies any other cardiovascular history, anxiety depression disorders, or endocrine disorders. Patient demonstrated hypertensive urgency in ED with tachycardia: 212/100, 200/93, 192/100, 213/100, heart rate 104-135. At the time of admit temp 98.4?, BP 178/94, HR 105, R 14, O2 saturation 99% on room air. While patient continues to be severely anxious, agitated, rapid speech and shaky she is hemodynamically stable and in no respiratory/cardiovascular distress at this time. Patient's CBC CMP and coagulation studies are all WNL, elevated liver enzymes are at baseline for patient, troponin x2 are negative, lipase WNL, total protein 9.1, albumin 5.1, patient's chest x-ray is negative for any acute cardiopulmonary processes. EKG sinus rhythm with a rate of [address] or T-wave changes, no changes from EKG on 08/13/2022. Patient admitted for chest pressure, with hypertensive urgency. 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 Exercises Regularly. Tobacco & Substance use: Smoking Status Never smoker alcohol intake frequency 0-2 drinks per day Substance Use Type marijuana Meds Home Medications and Allergies Home Medications Medication Instructions Recorded Confirmed Type alpha lipoic acid 200 mg capsule 200 mg PO DAILY 08/11/20 08/20/22 History coenzyme Q10 200 mg/gram oral 200 mg PO DAILY 08/11/20 08/20/22 History powder (H2Q CoQ10) gabapentin 400 mg capsule 400 mg PO TID 08/11/20 08/20/22 History loratadine 10 mg tablet (Claritin) 10 mg PO DAILY PRN Allergic 08/11/20 08/20/22 History Symptoms milk thistle 150 mg capsule 300 mg PO DAILY 08/11/20 08/20/22 History multivitamin 1 cap PO DAILY 08/11/20 08/20/22 History omega-3 fatty acids 1,000 mg 1,000 mg PO DAILY 08/11/20 08/20/22 History capsule (Fish Oil Concentrate) tramadol 50 mg tablet 50 mg PO DAILY PRN pain 08/11/20 08/20/22 History turmeric 400 mg capsule 400 mg PO DAILY 08/11/20 08/20/22 History albuterol sulfate 90 mcg/actuation 2 puff inhalation Q4-6H PRN 08/10/21 08/20/22 Rx aerosol inhaler shortness of breath or wheezing #8.5 grams metoprolol tartrate 50 mg tablet 50 mg PO BID #180 tabs 07/25/22 08/20/22 Rx omeprazole 20 mg capsule,delayed 20 mg PO DAILY #90 caps 07/25/22 08/20/22 Rx release Allergies Allergy/AdvReac Type Severity Reaction Status Date / Time droperidol [From Inapsine] Allergy Verified 08/13/22 19:01 prochlorperazine Allergy Verified 08/13/22 19:01 [From Compazine] trazadone Allergy Severe Chest Pain Uncoded 08/14/22 12:30 Review of Systems Review of Systems Narrative: All 12 point systems reviewed with the patient and are negative except otherwise documented. Exam Vital Signs (past 8 hours): - 08/19/22 20:15 08/19/22 21:05 08/19/22 20:19 Temperature 98.4 F Pulse Rate 84 102 H 88 Respiratory Rate 16 Blood Pressure 212/100 H 186/93 H Pulse Oximetry 98 100 Oxygen Delivery Method Room Air 08/19/22 20:20 08/19/22 20:20 08/19/22 20:25 Temperature Pulse Rate 86 88 Respiratory Rate Blood Pressure 213/100 H Pulse Oximetry 100 100 Oxygen Delivery Method 08/19/22 20:30 08/19/22 20:35 08/19/22 20:40 Temperature Pulse Rate 104 H 97 H 89 Respiratory Rate Blood Pressure Pulse Oximetry 100 100 100 Oxygen Delivery Method 08/19/22 20:41 08/19/22 20:41 08/19/22 20:45 Temperature Pulse Rate 91 H 90 Respiratory Rate Blood Pressure 200/93 H Pulse Oximetry 100 Oxygen Delivery Method 08/19/22 20:50 08/19/22 20:55 08/19/22 21:00 Temperature Pulse Rate 84 88 99 H Respiratory Rate Blood Pressure Pulse Oximetry 100 100 100 Oxygen Delivery Method 08/19/22 21:01 08/19/22 21:01 08/19/22 21:05 Temperature Pulse Rate 102 H 103 H Respiratory Rate 15 Blood Pressure 186/93 H Pulse Oximetry 100 100 Oxygen Delivery Method 08/19/22 21:10 08/19/22 21:10 08/19/22 21:14 Temperature Pulse Rate 111 H Respiratory Rate 19 Blood Pressure 181/82 H 192/100 H Pulse Oximetry 100 Oxygen Delivery Method 08/19/22 21:14 08/19/22 21:15 08/19/22 21:15 Temperature Pulse Rate 132 H 135 H Respiratory Rate 17 16 Blood Pressure 178/96 H Pulse Oximetry 99 99 Oxygen Delivery Method 08/19/22 21:20 08/19/22 21:20 08/19/22 21:25 Temperature Pulse Rate 105 H Respiratory Rate Blood Pressure 178/94 H 170/90 H Pulse Oximetry 99 Oxygen Delivery Method 08/19/22 21:25 08/19/22 21:30 08/19/22 21:30 Temperature Pulse Rate 81 80 Respiratory Rate 14 14 Blood Pressure 158/89 H Pulse Oximetry 99 97 Oxygen Delivery Method 08/19/22 21:35 08/19/22 21:35 08/19/22 21:40 Temperature Pulse Rate 80 Respiratory Rate 13 Blood Pressure 151/90 H 150/95 H Pulse Oximetry 99 Oxygen Delivery Method 08/19/22 21:40 08/19/22 21:45 08/19/22 21:45 Temperature Pulse Rate 84 80 Respiratory Rate Blood Pressure 157/101 H Pulse Oximetry 99 99 Oxygen Delivery Method 08/19/22 21:50 08/19/22 21:50 08/19/22 21:55 Temperature Pulse Rate 83 Respiratory Rate 17 Blood Pressure 182/86 H 160/80 H Pulse Oximetry 99 Oxygen Delivery Method 08/19/22 21:55 08/19/22 22:00 08/19/22 22:00 Temperature Pulse Rate 81 80 Respiratory Rate 16 22 Blood Pressure 166/88 H Pulse Oximetry 98 99 Oxygen Delivery Method 08/19/22 22:05 08/19/22 22:05 08/19/22 22:10 Temperature Pulse Rate 82 Respiratory Rate 21 Blood Pressure 168/90 H 195/95 H Pulse Oximetry 99 Oxygen Delivery Method 08/19/22 22:10 08/19/22 22:15 08/19/22 22:15 Temperature Pulse Rate 83 86 Respiratory Rate 18 15 Blood Pressure 182/88 H Pulse Oximetry 99 99 Oxygen Delivery Method 08/19/22 22:20 08/19/22 22:20 08/19/22 22:25 Temperature Pulse Rate 78 Respiratory Rate 15 Blood Pressure 194/89 H 172/85 H Pulse Oximetry 100 Oxygen Delivery Method 08/19/22 22:25 08/19/22 22:30 08/19/22 22:35 Temperature Pulse Rate 80 72 75 Respiratory Rate 18 22 24 Blood Pressure Pulse Oximetry 99 100 100 Oxygen Delivery Method 08/19/22 22:40 08/19/22 22:45 08/19/22 22:50 Temperature Pulse Rate 71 69 68 Respiratory Rate 15 Blood Pressure Pulse Oximetry 100 100 99 Oxygen Delivery Method 08/19/22 22:55 08/19/22 23:00 08/19/22 23:05 Temperature Pulse Rate 68 67 67 Respiratory Rate 16 16 Blood Pressure Pulse Oximetry 99 99 98 Oxygen Delivery Method 08/19/22 23:10 08/19/22 23:15 08/19/22 23:20 Temperature Pulse Rate 68 69 75 Respiratory Rate 17 17 21 Blood Pressure Pulse Oximetry 98 99 100 Oxygen Delivery Method 08/19/22 23:21 08/19/22 23:21 08/19/22 23:28 Temperature Pulse Rate 79 86 Respiratory Rate 20 24 Blood Pressure 194/95 H Pulse Oximetry 100 Oxygen Delivery Method 08/19/22 23:30 08/19/22 23:35 08/19/22 23:35 Temperature Pulse Rate 74 73 Respiratory Rate 18 Blood Pressure 164/93 H Pulse Oximetry 100 100 Oxygen Delivery Method 08/19/22 23:40 Temperature Pulse Rate 69 Respiratory Rate 17 Blood Pressure Pulse Oximetry 98 Oxygen Delivery Method Oxygen Delivery Method Room Air Narrative Exam Narrative: General: Patient is a well-developed, well-nourished, fit, very pleasant very anxious female, in no acute distress at this time. HEENT: Normocephalic, atraumatic, extraocular muscles intact, oral pharynx is clear and mucous membranes are moist. Neck is supple and symmetric, trachea is midline, no adenopathy, no thyroid enlargement, nontender, no masses palpated. Negative for JVD Chest: Normal AP diameter and contour without kyphoscoliosis, no nasal flaring, retractions, or tachypneic labored Lungs: Auscultation of all lung mendoza are clear without adventitious sounds, wheezes, rhonchi, or rales. Cardio: S1 & S2 with regular rate and rhythm without rubs, or gallops, no carotid bruit, no cardiac pulsations present. Abdomen: Soft nontender, negative for organomegaly, or masses. Bowel sounds are present in all 4 quadrants without guarding or rebound, no CVA tenderness. Musculoskeletal: Muscle strength and tone are equal within normal limits, no deformity, crepitus, effusions, cyanosis, clubbing or edema present. Full range of motion intact radial and pedal pulses are normal. Skin: Warm dry and intact without rashes, ulcerations or petechiae. Neuro: Alert and orientated x3, strength is +5/5 in all extremities, sensation to touch intact, no gross deficits noted of cranial nerves. Psych: Patient has a well-kept appearance, very anxious affect, mental status attitude thought context and judgment are exacerbated. Objective Labs Result Diagrams: 08/19/22 20:35 08/19/22 20:35 Labs: Laboratory Results - last 24 hr 08/19/22 08/19/22 08/19/22 20:35 20:35 20:35 WBC 7.8 RBC 5.21 H Hgb 15.3 Hct 43.5 MCV 83.5 MCH 29.4 MCHC 35.2 RDW 13.5 Plt Count 291 Neut % (Auto) 60.1 Lymph % (Auto) 32.7 Marshall % (Auto) 5.8 Eos % (Auto) 1.1 L Baso % (Auto) 0.3 Neut # (Auto) 4700 Lymph # (Auto) 2500 Marshall # (Auto) 500 Eos # (Auto) 100 Baso # (Auto) 0 PT 11.7 INR 1.0 APTT 33 Sodium 143 Potassium 3.6 Chloride 102 Carbon Dioxide 27 BUN 10 Creatinine 0.84 Estimated GFR > 60 BUN/Creatinine Ratio 11.9 Glucose 121 H Calcium 10.0 Total Bilirubin 1.7 H AST 38 H ALT 46 H Alkaline Phosphatase 94 Total Creatine Kinase 51 CK-MB (CK-2) TNP CK-MB (CK-2) Rel Index TNP Troponin I < 0.012 NT-Pro-B Natriuret Pep Total Protein 9.1 H Albumin 5.1 H Globulin 4.0 Albumin/Globulin Ratio 1.3 Lipase 95 08/19/22 08/19/22 20:35 22:35 WBC RBC Hgb Hct MCV MCH MCHC RDW Plt Count Neut % (Auto) Lymph % (Auto) Marshall % (Auto) Eos % (Auto) Baso % (Auto) Neut # (Auto) Lymph # (Auto) Marshall # (Auto) Eos # (Auto) Baso # (Auto) PT INR APTT Sodium Potassium Chloride Carbon Dioxide BUN Creatinine Estimated GFR BUN/Creatinine Ratio Glucose Calcium Total Bilirubin AST ALT Alkaline Phosphatase Total Creatine Kinase CK-MB (CK-2) CK-MB (CK-2) Rel Index Troponin I < 0.012 NT-Pro-B Natriuret Pep 52 Total Protein Albumin Globulin Albumin/Globulin Ratio Lipase Assessment & Plan Assessment & Plan narrative: Gloria Castano is a 57-year-old female with history of hypertension, idiopathic peripheral neuropathy, GERD, adjustment disorder w/anxiety, emphysema and chronically elevated liver enzymes who presents with complaint of chest pressure, that feels like throat tightness that comes & goes, elevated blood pressures, and acute onset anxiety and panic attacks. Patient admitted for chest pressure, with hypertensive urgency, and risk stratification.? 1. Chest pressure, at rest, acute, with hypertensive urgency, acute, in the setting of essential hypertension, present on admission -at the time of admit patient is stable and in no acute distress. -I suspect that patient's hypertension and chest pressure are secondary to acute onset of anxiety likely a result from abnormal mammogram on 08/03/2022, she has not yet told her of the needed follow up. I do want to r/o TSH/Adrenal- due to severity of anxiety. -ED B/P: 212/100, 200/93, 192/100, 213/100, HR:104-135 -patient received 2 doses of metoprolol in ED. -admit temp 98.4?, BP 178/94, HR 105, R 14, O2 saturation 99% on room air. Heart Score:2 -CBC CMP and coagulation studies are all WNL -troponin x2 are negative- Trend Troponins -EKG sinus rhythm with a rate of [address] or T-wave changes, no changes from EKG on 08/13/2022. -CXR-Negative -ED Visit 08/13/[address] Meehan:Low risk heart score, nonspecific changes in the EKG, troponins negative x2.? Chest x-ray is unremarkable.? Patient is now asymptomatic.? Will discharge patient home with instructions to continue to take her blood pressure as she may need changes in his medications.? She will contact her primary doctor to discuss further risk stratification.?(I personally reviewed Note, labs,imaging,EKG) -admitted under chest pain protocol, telemedicine -aspirin, lipid panel, TSH -exercise stress and echo tomorrow -allow for permissive hypertension, lowering over 48 hours -continue metoprolol, increase 50mg BID to 75mg BID -Follow up with PCP -provide pt with home B/P log x2 weeks to take to pcp for evaluation 2. Anxiety with panic attacks, acute, adjustment disorder with anxiety, adjustment insomnia, acute, present on admission -Ativan BOBBY -Enio PCP Office visit Note 08/09/2022:Adjustment disorder with anxiety/adjustment insomnia:? We discussed options and agreed to trial of trazodone.? Counseled on administration/risks/benefits/side effects of medication.? Patient had initially requested clonazepam as she found it to have worked so well previously and found it to be well tolerated; I advised that if the trazodone is entirely ineffective she may contact us and I would plan to order low-dose clonazepam for nighttime use only and with plan for short-term use.? If we do ultimately end up ordering clonazepam, and the patient experiences difficulties with anxiety and insomnia for a more prolonged period of time than expected, she will need to follow-up with us and we would then discuss next steps.? She was advised that if we do order clonazepam she must absolutely not drink any alcohol with this and she does understand this.? -TSH with T4, a.m. cortisol -Follow up w/PCP for management 3. Abnormal mammogram, acute, present on admission -Mammogram 08/03/2022:The multiple oval asymmetries in the right breast inferior lateral quadrant middle depth are indeterminate.? Additional views with possible ultrasound are recommended.? The oval high density focal asymmetry in the left breast at 12 o'clock middle depth is indeterminate.? -I personally Reviewed Mammogram, & Enio PCP Office visit 08/09/2022:Abnormal mammogram:? We reviewed the mammogram report and discussed recommendations.? Will contact the patient with results next imaging studies. -F/U per PCP instructions 4. Peripheral neuropathy, unknown etiology, chronic, present on admission -continue gabapentin 5. GERD, chronic, present on admission -continue omeprazole 6. Underweight, acute, present on admission -as evidence by BMI 17.6, intentional weight loss per patient report. -TSH, cortisol ordered rule out endocrinology factor due to weight loss coupled with acute anxiety onset. -Dietary consult ordered to assess nutritional status intake, diet and lifestyle choices. 7. Emphysema, chronic, present on admission -continue albuterol Code status:Full Surrogate decision maker: Misael Castano- Spouse COVID PCR:Negative DVT/VTE prophylaxis: Lovenox and SCDs Disposition: Patient admitted for observation chest pressure hypertensive urgency risk stratification rule out echo and stress, expected length of stay less than 2 midnights. I have utilized all available immediate resources to obtain, update, or review the patient's current medications. I confirmed that the patient's advanced care plan is present, Code status is documented and/or surrogate decision maker is listed in the patient's medical record. Time Spent With Patient Critical Care time: I spent a total of [] minutes of critical care time on this patient's care today; this time is exclusive of procedural time.
[2022-08-20] VITALS (14 sets, daily range): BP systolic 121–172; BP diastolic 75–99; PULSE 65–81; RESP 12–19; TEMP 36.5–37.1; O2SAT 97–99; BMI 17.5
[2022-08-20 00:04] LABS: Cholesterol 250 mg/dL (140-199); HDL Cholesterol 53 mg/dL (40-60); LDL Cholesterol Calculated 138 mg/dL (<100); Triglycerides 297 mg/dL (35-150)
[2022-08-20 00:46] LABS: COVID19 -Nasal RAPID Negative (Negative)
[2022-08-20] MEDS: LORazepam 1 MG TABLET PO (02:43)
[2022-08-20 03:22] LABS: TSH w/ Reflex to FT4 1.56 uIU/mL (0.47-4.68)
[2022-08-20 05:28] LABS: BUN Creatinine Ratio 15.2 (6-22); Blood Urea Nitrogen 10 mg/dL (7-17); Calcium 9.1 mg/dL (8.4-10.2); Carbon Dioxide 26 mmol/L (22-32); Chloride 104 mmol/L (98-107); Estimated Glomerular Filt Rate > 60 mL/min (>60); Glucose 118 mg/dL (70-100); HEMOLYSIS < 15 (0-50); Potassium 3.9 mmol/L (3.4-5.1); Sodium 138 mmol/L (137-145)
[2022-08-20 05:37] LABS: Troponin I < 0.012 ng/mL (0.01-0.034)
[2022-08-20 06:03] LABS: Cortisol AM (Before 10AM) 6.11 ug/dL (4.46-22.7)
[2022-08-20] MEDS: ENOXAPARIN 40 MG/0.4 ML SYRINGE SUBCUT (09:17)
[2022-08-20] MEDS: PANTOPRAZOLE DR 20 MG TABLET PO (09:18)
[2022-08-20] MEDS: METOPROLOL IR 50 MG TABLET 75 MG PO (09:18)
[2022-08-20] MEDS: ASPIRIN EC 81 MG TABLET PO (09:19)
[2022-08-20] MEDS: GABAPENTIN 400 MG CAPSULE PO ×2 (09:19→15:20)
--- NOTE | 2022-08-20 12:39 | CM.DANOTE ---
DCP: Case received, EMR reviewed and met with patient. Introduced self and role. Was able to obtain information regarding patient's baseline history prior to hospitalization. DCP assessment completed with information currently available. Patient is a 57 year old female who admitted yesterday evening to the care of the hospitalist team. PCP: JED Haines. Payer: confirmed: [employer]age. Patient came to the hospital via private vehicle secondary to having complaints of chest pressure, anxiety, high blood pressure. Patient had complained of feeling panicky. Patient has history of HTN, idiopathic peripheral neuropathy, GERD, adjustment disorder with anxiety,, chronically elevated liver enzymes. Patient was admitted for chest pain, HTN. 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 Met with patient in her room. She was sitting up in bed having lunch, pleasant. She is alert and oriented. Confirmed that she resides in [place] with spouse, Misael. She is independent at her baseline. 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 She stated, due to my anxiety, I got rid of my social media accounts, and not subscribing to cable channels, which also stress me out. She mentioned that she had attempted to get in touch with her nurse practitioner's office, but had trouble getting through, this was due to her concerns about her blood pressures. Gave patient a print out of some of the psychology providers in the [place] area. Let her know that it is unclear if she will need an auth by her primary care provider, but can either call some of the resources, or call her insurance on the back of her card to see if she needs this. P: DCP to continue to follow. Patient should be able to go home when she is deemed medically stable. Elena Schmidt RN/High School Teacher Discharge Planning/Care Management CM Discharge Assessment Start: 08/20/22 12:37 Freq: Status: Active Protocol: Document 08/20/22 12:37 (Rec: 08/20/22 12:39 [id number]) Discharge Planning Assessment Assigned Dungeon Master Elena Schmidt RN/High School Teacher Advance Directives? Yes Advance Directives on File No History Provided By Patient,Medical Record Prior Living Arrangements House Household Members spouse Type of transporation used prior to Drives own vehicle admit Independent with ADL's Yes Is patient alert and oriented? Yes Caregiver for Another No Barriers to Discharge No Discharge Plan Home Transportation Arrangement Spouse Referrals Initiated Other Additional Comment Print out for psycologists in her area. Whiteboard Updated in Patient Room with Yes name and ext. # of Dungeon Master Review Status In Process Next Review Type Continued Stay Review
--- NOTE | 2022-08-20 17:21 | P.DS_ITS ---
History of Present Illness History of Present Illness Date Patient Seen: 08/19/22 Time Patient Seen: 23:50 Chief complaint: High BP Narrative: Per admitting provider: Gloria Castano is a 57-year-old female with history of hypertension, idiopathic peripheral neuropathy, GERD, adjustment disorder w/anxiety, emphysema and chronically elevated liver enzymes who presents with complaint of chest pressure, that feels like throat tightness that comes & goes, no known triggering factors. It does not seem to be exertional,?no radiation, occurs at rest, does not experience diaphoresis, headache, changes in vision, weakness, numbness tingling or shortness of breath with chest pressure discomfort.?She does complain of feeling shaky, and very poor because I don't want to Patient was given trazodone anxiety/ insomnia last week, after 3 days developed elevated B/P & chest pressure. Was seen in ED 08/13/2022: troponinsx2-negative, Normal EKG-D/C Home stable: atypical chest pain. Patient continues to report home B/P readings SBP 120-212/[id number]. Patient notes that she is been under increased stress and only recently developed a rapid onset of anxiety/insomia which is supported in chart history review. No prior history of anxiety, depression or panic attacks. Patient describes in depth worrying and anxiety over a prolifera including the war in [place], tick tock, Facebook (social media), finances, and fear of dying. She is extremely anxious, with a rapid speech pattern and scattered thought process. 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 Patient has been on metoprolol 50 mg twice daily for approximately 20 years, states that her last stress and echo were over 10 years ago, but has had been under the care of a PCP. Decided in the last few days to increase metoprolol to t.i.d (50mg,25mg, 50mg), with no improvement in B/P. Patient verbalizes that when she takes her blood pressure, observes elevated readings she becomes anxious, then has increased chest pressure and has continued to repeat this cycle measuring blood pressure repeatedly I think I am having panic attacks. 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 Patient also had mammogram on 08/03/2022 that showed multiple oval asymmetries?in bilateral breast, she is having follow up for required further evaluation- she notes that she has no advised her of these findings. Patient exercises regularly, notes recent intentional 15 lb weight loss, non- smoker, no alcohol or illicit substances. Mother had hypertension, father atrial fibrillation, grandfather of a heart attack. Patient's primary care is Reagan Steen.? ? At time of admit patient is still extremely anxious provided significant patient education regarding permissive hypertension management and risk stratification. Anxiety and agitation continue but chest pressure has resolved. Patient denies shortness of breath, diaphoresis, FRANK, changes in vision, numbness, tingling, weakness, difficulty with swallowing or speech, balance or coordination issues, abdominal pain, nausea, vomiting, urinary symptoms, dysuria, urgency, frequency, hematuria, melena, hematochezia, swelling in her extremities, cough, congestion, nasal drainage, recent falls, new or changes to medication, recent travel, exposure to illnesses, recent illness injury or trauma.? Patient denies any other cardiovascular history, anxiety depression disorders, or endocrine disorders. Patient demonstrated hypertensive urgency in ED with tachycardia: 212/100, 200/93, 192/100, 213/100, heart rate 104-135. At the time of admit temp 98.4?, BP 178/94, HR 105, R 14, O2 saturation 99% on room air. While patient continues to be severely anxious, agitated, rapid speech and shaky she is hemodynamically stable and in no respiratory/cardiovascular distress at this time. Patient's CBC CMP and coagulation studies are all WNL, elevated liver enzymes are at baseline for patient, troponin x2 are negative, lipase WNL, total protein 9.1, albumin 5.1, patient's chest x-ray is negative for any acute cardiopulmonary processes. EKG sinus rhythm with a rate of [address] or T- wave changes, no changes from EKG on 08/13/2022. Patient admitted for chest pressure, with hypertensive urgency. Discharge Providers Provider Date of admission: 08/19/22 23:54 Discharge Date: 08/20/22 Primary care physician: JED Haines Discharge provider: Louis Serra MD Summary Hospital Course Discharge Diagnosis: 1. Atypical chest pain 2. Anxiety 3. Hypertension 4. Peripheral neuropathy 5. GERD Hospital Course: Ms. Castano was admitted with chest pain. She initially did have quite elevated blood pressure. She has recently had significant anxiety. Her chest pain was atypical in nature and resolved in the hospital. EKG showed no acute ischemia. Troponins were negative. ECHO showed no acute abnormality. Stress test was low risk study. She possibly has a significant anxiety component to her chest pain. She is planning to see her PCP this week for further follow up. Exam Vital Signs (past 8 hours): - 08/20/22 12:00 Temperature 98.2 F Pulse Rate 81 Respiratory Rate 19 Blood Pressure 140/92 H Pulse Oximetry 99 Oxygen Flow Rate 0 Oxygen Delivery Method Room Air Oxygen Flow Rate 0 Narrative Exam Narrative: GEN: no acute distress CV: regular rate and rhythm, no murmurs PULM: clear bilaterally ABD: soft, nontender, nondistended, no organomegaly EXT: warm and well perfused, no edema Objective Labs Result Diagrams: 08/19/22 20:35 08/20/22 04:55 Labs: Laboratory Results - last 24 hr 08/19/22 08/19/22 08/19/22 20:35 20:35 20:35 WBC 7.8 RBC 5.21 H Hgb 15.3 Hct 43.5 MCV 83.5 MCH 29.4 MCHC 35.2 RDW 13.5 Plt Count 291 Neut % (Auto) 60.1 Lymph % (Auto) 32.7 [place] % (Auto) 5.8 Eos % (Auto) 1.1 L Baso % (Auto) 0.3 Neut # (Auto) 4700 Lymph # (Auto) 2500 [place] # (Auto) 500 Eos # (Auto) 100 Baso # (Auto) 0 PT 11.7 INR 1.0 APTT 33 Sodium 143 Potassium 3.6 Chloride 102 Carbon Dioxide 27 BUN 10 Creatinine 0.84 Estimated GFR > 60 BUN/Creatinine Ratio 11.9 Glucose 121 H Calcium 10.0 Magnesium Total Bilirubin 1.7 H AST 38 H ALT 46 H Alkaline Phosphatase 94 Total Creatine Kinase 51 CK-MB (CK-2) TNP CK-MB (CK-2) Rel Index TNP Troponin I < 0.012 NT-Pro-B Natriuret Pep Total Protein 9.1 H Albumin 5.1 H Globulin 4.0 Albumin/Globulin Ratio 1.3 Triglycerides Cholesterol LDL Cholesterol, Calc HDL Cholesterol Lipase 95 TSH Cortisol AM Sample SARS-CoV-2 (PCR) 08/19/22 08/19/22 08/19/22 20:35 20:35 20:35 WBC RBC Hgb Hct MCV MCH MCHC RDW Plt Count Neut % (Auto) Lymph % (Auto) [place] % (Auto) Eos % (Auto) Baso % (Auto) Neut # (Auto) Lymph # (Auto) [place] # (Auto) Eos # (Auto) Baso # (Auto) PT INR APTT Sodium Potassium Chloride Carbon Dioxide BUN Creatinine Estimated GFR BUN/Creatinine Ratio Glucose Calcium Magnesium 2.0 Total Bilirubin AST ALT Alkaline Phosphatase Total Creatine Kinase CK-MB (CK-2) CK-MB (CK-2) Rel Index Troponin I NT-Pro-B Natriuret Pep 52 Total Protein Albumin Globulin Albumin/Globulin Ratio Triglycerides 297 H Cholesterol 250 H LDL Cholesterol, Calc 138 H HDL Cholesterol 53 Lipase TSH Cortisol AM Sample SARS-CoV-2 (PCR) 08/19/22 08/19/22 08/20/22 20:35 22:35 00:29 WBC RBC Hgb Hct MCV MCH MCHC RDW Plt Count Neut % (Auto) Lymph % (Auto) [place] % (Auto) Eos % (Auto) Baso % (Auto) Neut # (Auto) Lymph # (Auto) [place] # (Auto) Eos # (Auto) Baso # (Auto) PT INR APTT Sodium Potassium Chloride Carbon Dioxide BUN Creatinine Estimated GFR BUN/Creatinine Ratio Glucose Calcium Magnesium Total Bilirubin AST ALT Alkaline Phosphatase Total Creatine Kinase CK-MB (CK-2) CK-MB (CK-2) Rel Index Troponin I < 0.012 NT-Pro-B Natriuret Pep Total Protein Albumin Globulin Albumin/Globulin Ratio Triglycerides Cholesterol LDL Cholesterol, Calc HDL Cholesterol Lipase TSH 1.56 Cortisol AM Sample SARS-CoV-2 (PCR) Negative 08/20/22 08/20/22 04:55 04:55 WBC RBC Hgb Hct MCV MCH MCHC RDW Plt Count Neut % (Auto) Lymph % (Auto) [place] % (Auto) Eos % (Auto) Baso % (Auto) Neut # (Auto) Lymph # (Auto) [place] # (Auto) Eos # (Auto) Baso # (Auto) PT INR APTT Sodium 138 Potassium 3.9 Chloride 104 Carbon Dioxide 26 BUN 10 Creatinine 0.66 Estimated GFR > 60 BUN/Creatinine Ratio 15.2 Glucose 118 H Calcium 9.1 Magnesium Total Bilirubin AST ALT Alkaline Phosphatase Total Creatine Kinase CK-MB (CK-2) CK-MB (CK-2) Rel Index Troponin I < 0.012 NT-Pro-B Natriuret Pep Total Protein Albumin Globulin Albumin/Globulin Ratio Triglycerides Cholesterol LDL Cholesterol, Calc HDL Cholesterol Lipase TSH Cortisol AM Sample 6.11 SARS-CoV-2 (PCR) [facility] Medical History Adjustment disorder with anxiety Adjustment insomnia Emphysema lung History of cardiac dysrhythmia Hypertension Impaired fasting blood sugar Liver enzyme elevation Middle lobe syndrome Mitral valve prolapse Mixed dyslipidemia Peripheral neuropathy Surgical History History of lung surgery Family History (Updated 08/20/22 @ 03:33 by JAKE Ledezma) Mother Hypertension Father Lung disease Atrial fibrillation Grandmother Heart attack Social History household members: spouse Smoking Status: Never smoker Discharge Plan Discharge Plan Patient Disposition: Home Provider Discharge Comment: Ms. Castano was admitted to the hospital with chest pain. She had an ECHO and stress done that were reassuring. She should follow up closely with her PCP for her anxiety and high blood pressure. She has an appointment this . She says she has an appointment today with her PCP. She will increase her metoprolol slightly to 75mg BID and she says she has enough pills to split in half. Discharge orders & Medications Prescriptions: Continued omeprazole 20 mg capsule,delayed release(DR/EC) 20 mg PO DAILY Qty: 90 0RF loratadine [Claritin] 10 mg tablet 10 mg PO DAILY PRN (Reason: Allergic Symptoms) gabapentin 400 mg capsule 400 mg PO TID alpha lipoic acid 200 mg capsule 200 mg PO DAILY tramadol 50 mg tablet 50 mg PO DAILY PRN (Reason: pain) H2Q CoQ10 200 mg/gram powder 200 mg PO DAILY multivitamin Capsule 1 cap PO DAILY turmeric 400 mg capsule 400 mg PO DAILY omega-3 fatty acids [Fish Oil Concentrate] 1,000 mg capsule 1,000 mg PO DAILY milk thistle 150 mg capsule 300 mg PO DAILY Rx Instructions: give with meal/snack albuterol sulfate 90 mcg/actuation HFA aerosol inhaler 2 puff inhalation Q4-6H PRN (Reason: shortness of breath or wheezing) Qty: 8.5 3RF Changed metoprolol tartrate 50 mg tablet 75 mg PO BID Qty: 180 0RF Follow up/Referrals: Reagan Steen ARNP [Primary Care Provider] - 1 Day Discharge Data Primary Care Provider: Reagan Steen Attending Provider: Emma Neil VTE Deep Vein Thrombosis/Pulmonary Embolism Present on Admission: Yes
--- NOTE | 2022-08-20 18:03 | PC.NURSE ---
Addendum entered by Joe Sinclair R.N. 08/20/22 18:26: Escorted out via wheelchair by SECURITY ASSURANCE ANALYST to discharge to home with her . Original Note: Discharge instructions reviewed with patient, she states understanding and has no further questions at this time. IV dc'd intact. Patient states she was able to reschedule her appt. that was today (3pm) that she was unable to get to, to this week.
== END 2022-08-20 18:26 | disposition home or self-care (01) ==
LOC: ED 22:01 → AC 23:54
PROVIDERS: Admitting Provider Nurse Practitioner Family; Emergency Provider Emergency Medicine; PCP Registered Nurse Diabetes Educator; Visit Provider Nurse Practitioner Family
DX: I16.0 Hypertensive urgency (principal); R07.89 Other chest pain; I10 Essential (primary) hypertension; F41.0 Panic disorder [episodic paroxysmal anxiety]; F41.9 Anxiety disorder, unspecified; G60.9 Hereditary and idiopathic neuropathy, unspecified; K21.9 Gastro-esophageal reflux disease without esophagitis; J43.9 Emphysema, unspecified; R63.6 Underweight; Z68.1 Body mass index [BMI] 19.9 or less, adult; Z20.822 Contact with and (suspected) exposure to COVID-19
CPT/HCPCS: 36415; 71045; 80048; 80053; 80061; 82533; 82550; 83690; 83735; 83880; 84443; 84484; 85025; 85610; 85730; 87635; 93005; 93017; 93306; 96360; 96361; 96372; 99284; C9803; G0378; J1650

== ENCOUNTER → 2022-08-22 11:42 | Outpatient (CLI) | payer OTHER, SELFPAY ==
[2022-08-20 00:52] VITALS: BMI 17.5
--- NOTE | 2022-08-22 11:43 | DI.MG.S_ITS ---
BILATERAL DIGITAL DIAGNOSTIC MAMMOGRAM 3D/2D WITH ADDITIONAL VIEWS: 08/22/2022 CLINICAL: Additional evaluation requested from prior study. Comparison is made to exam dated: 08/03/2022 mammogram - [facility]. Both breasts are heterogeneously dense, which may obscure small masses (category c / 51-75% glandular tissue). There is a possible 6 mm oval asymmetry with an indistinct margin in the right breast at 7 o'clock anterior depth. This is not seen in additional views. This, and several other possible asymmetries indicated on screening mammogram, are all less prominent, or no longer seen. There is a 9 mm oval asymmetry with an obscured and partially circumscribed margin in the left breast at 6 o'clock middle depth. This is confirmed with additional views. No other significant masses or calcifications are seen in either breast. IMPRESSION: INCOMPLETE: NEEDS ADDITIONAL IMAGING EVALUATION The possible 6 mm oval asymmetry in the right breast at 7 o'clock anterior depth is less prominent, probably fibroglandular tissue but remains indeterminate. An ultrasound is recommended. The 9 mm oval asymmetry in the left breast at 6 o'clock middle depth remains indeterminate. An ultrasound is recommended. Bilateral breast ultrasound of these areas was performed immediately following this exam. Based on the Tyrer Cuzick model (a risk assessment model) the patient's lifetime risk is 10.1% and her 10 year risk is 3.9%. According to the ACR, ACS, and NCCN guidelines, an annual breast MRI exam along with mammogram is recommended if the patient's lifetime risk is 20% or greater. This exam was interpreted at Station ID: [id number]. NOTE: For mammograms, a report in lay terms will be sent to the patient. Approximately 15% of breast malignancies will not be visualized mammographically. In the management of a palpable breast mass, a negative mammogram must not discourage biopsy of a clinically suspicious lesion. Electronically Signed By: Dipti bravo/:08/22/2022 12:29:35 ACR BI-RADS Category 0: Incomplete [id number]
--- NOTE | 2022-08-22 11:43 | DI.US.S_ITS ---
LIMITED ULTRASOUND OF RIGHT BREAST: 08/22/2022 CLINICAL: Patient returns today to evaluate a focal asymmetry in the right breast. Comparison is made to exams dated: 08/22/2022 mammogram and 08/03/2022 mammogram - [facility]. Ultrasound of the right breast 7 o'clock region was performed. Siu scale images of the real-time examination were reviewed. No significant abnormalities were seen sonographically in the right breast. Specifically, no finding to correspond to the patient's resolved screening mammographic abnormality. IMPRESSION: NEGATIVE There is no sonographic evidence of malignancy. Return to annual mammogram screening schedule of the right breast is recommended. Findings and recommendations were conveyed to the patient at time of exam. This exam was interpreted at Station ID: [id number]. Electronically Signed By: Dipti bravo/:08/22/2022 13:11:11 Entry: - 08/23/2022 12:18:04 Ultrasound BI-RADS: 1 Negative
--- NOTE | 2022-08-22 11:43 | DI.US.S_ITS ---
LIMITED ULTRASOUND OF LEFT BREAST AND AXILLA: 08/22/2022 CLINICAL: Patient returns today to evaluate a focal asymmetry in the left breast. Comparison is made to exams dated: 08/22/2022 mammogram and 08/03/2022 mammogram - [facility]. Color flow ultrasound of the left breast 5-6 o'clock, and axilla regions was performed. Siu scale images of the real-time examination were reviewed. There is a 0.6 cm x 0.8 cm x 0.4 cm irregular mass in the left breast at 6 o'clock anterior depth 6 cm from the nipple. This irregular mass is hypoechoic with a hyperechoic rim and slight posterior acoustic shadowing. This correlates with mammography findings. Color flow imaging demonstrates that there is no vascularity present. No significant abnormalities were seen sonographically in the left axilla. IMPRESSION: SUSPICIOUS OF MALIGNANCY The 0.8 cm irregular mass in the left breast correlates with the mammogram finding, and is at a low suspicion for malignancy. Given morphology and no prior exams, an ultrasound guided biopsy is recommended. Findings and recommendations were discussed with the patient by Dr. Dior in person at time of exam. This exam was interpreted at Station ID: [id number]. Electronically Signed By: Dipti bravo/:08/22/2022 13:29:02 letter sent: Biopsy Required Ultrasound BI-RADS: 4a Low suspicion for malignancy
== END ==
PROVIDERS: PCP Registered Nurse Diabetes Educator; Referring Provider Registered Nurse Diabetes Educator; Visit Provider Registered Nurse Diabetes Educator
DX: R92.8 Other abnormal and inconclusive findings on diagnostic imaging of breast (principal); N63.25 Unspecified lump in the left breast, overlapping quadrants
CPT/HCPCS: 76642; 77066; G0279

== ENCOUNTER 2022-08-30 17:54 | Emergency (ER) | payer OTHER, SELFPAY ==
[2022-08-20 00:52] VITALS: BMI 17.5
[2022-08-30 18:01] VITALS: BP 206/98; PULSE 90; RESP 18; TEMP 36.2; O2SAT 100; BMI 24.4
--- NOTE | 2022-08-30 18:05 | DI.RAD.S_ITS ---
PROCEDURE: XR CHEST 1V INDICATIONS: chest pain TECHNIQUE: One view of the chest was acquired. COMPARISON: [facility], CR, XR CHEST 1V, 08/19/2022, 20:18. FINDINGS: Surgical changes and devices: None. Lungs and pleura: Lungs are clear. No pleural effusions or pneumothorax. Mediastinum: Mediastinal contours appear normal. Heart size is normal. Bones and chest wall: No suspicious bony lesions. Overlying soft tissues appear unremarkable. Mild dextroconvex curvature of the thoracic spine. IMPRESSION: No acute cardiopulmonary abnormality. Approved by: Isaias Dior M.D. on 08/30/2022 at 20:12
[2022-08-30 19:15] VITALS: BP 177/105
[2022-08-30 19:34] LABS: Alanine Aminotransferase 44 IU/L (<35); Albumin 4.8 g/dL (3.5-5.0); Albumin Globulin Ratio 1.2 (1.0-2.8); Alkaline Phosphatase 92 U/L (38-126); Aspartate Aminotransferase 45 IU/L (14-36); BUN Creatinine Ratio 15.8 (6-22); Blood Urea Nitrogen 9 mg/dL (7-17); Calcium 9.7 mg/dL (8.4-10.2); Carbon Dioxide 24 mmol/L (22-32); Chloride 104 mmol/L (98-107); Creatine Kinase 39 U/L (30-135); Estimated Glomerular Filt Rate > 60 mL/min (>60); Globulin 3.9 g/dL (1.7-4.1); Glucose 103 mg/dL (70-100); HEMOLYSIS 26 (0-50); Lipase 77 U/L (23-300); Potassium 3.8 mmol/L (3.4-5.1); Sodium 141 mmol/L (137-145); Total Protein 8.7 g/dL (6.3-8.2)
[2022-08-30 19:45] LABS: Troponin I < 0.012 ng/mL (0.01-0.034)
[2022-08-30 19:58] LABS: Add Manual Diff / Slide Review NO; Basophils Absolute Auto 100 /uL (0-100); Basophils Percent Auto 0.6 % (0-2); Eosinophils Absolute Auto 100 /uL (0-450); Eosinophils Percent Auto 0.6 % (2-4); Hematocrit 42.7 % (36-46); Hemoglobin 14.9 g/dL (12.0-16.0); Lymphocytes Absolute Auto 2300 /uL (1100-4500); Lymphocytes Percent Auto 20.8 % (25-40); Mean Corpuscular HGB Conc 34.8 % (30-36); Mean Corpuscular Hemoglobin 29.1 PG (26-34); Mean Corpuscular Volume 83.6 fL (80-100); Monocytes Absolute Auto 500 /uL (0-900); Monocytes Percent Auto 4.7 % (3-14); Neutrophils Absolute Auto 8000 /uL (1500-7000); Neutrophils Percent Auto 73.3 % (50-75); Platelet Count 273 X10^3/uL (150-400); Red Blood Cell Count 5.11 X10^6/uL (4.0-5.2); Red Cell Distribution Width 13.3 % (11.6-14.8); White Blood Cell Count 10.9 X10^3/uL (4.5-11.0)
--- NOTE | 2022-08-31 00:43 | ED_ITS ---
HPI - Chest Pain General Chief Complaint: Chest Pain Stated Complaint: High BP, 220/138 Time Seen by Provider: 08/31/22 00:33 Source: patient Mode of arrival: Ambulatory Limitations: no limitations History of Present Illness HPI narrative: Patient complains of neck discomfort tightness for the past 4 days just like her sensation she had when she was admitted here August 20 and had normal echocardiogram and stress test. Blood pressure noted. She is had blood pressure medication changes since she left the hospital and follow-up in primary care office. She is on metoprolol tartrate 50 mg 3 times a day. As well as amlodipine that was just started this evening. No diaphoresis no numbness tingling or weakness. No headache. No syncope. Provider Discharge Comment: Ms. Castano was admitted to the hospital with chest pain. She had an ECHO and stress done that were reassuring. She should follow up closely with her PCP for her anxiety and high blood pressure. She has an appointment this . She says she has an appointment today with her PCP. She will increase her metoprolol slightly to 75mg BID and she says she has enough pills to split in half. Related Data Home Medications Medication Instructions Recorded Confirmed alpha lipoic acid 200 mg capsule 200 mg PO DAILY 08/11/20 08/23/22 coenzyme Q10 200 mg/gram oral 200 mg PO DAILY 08/11/20 08/23/22 powder (H2Q CoQ10) loratadine 10 mg tablet (Claritin) 10 mg PO DAILY PRN Allergic 08/11/20 08/23/22 Symptoms milk thistle 150 mg capsule 300 mg PO DAILY 08/11/20 08/23/22 multivitamin 1 cap PO DAILY 08/11/20 08/23/22 omega-3 fatty acids 1,000 mg 1,000 mg PO DAILY 08/11/20 08/23/22 capsule (Fish Oil Concentrate) tramadol 50 mg tablet 50 mg PO DAILY PRN pain 08/11/20 08/23/22 turmeric 400 mg capsule 400 mg PO DAILY 08/11/20 08/23/22 gabapentin 400 mg capsule 400 mg PO TID PRN 08/23/22 08/23/22 Previous Rx's Medication Instructions Recorded albuterol sulfate 90 mcg/actuation 2 puff inhalation Q4-6H PRN 08/10/21 aerosol inhaler shortness of breath or wheezing #8.5 grams omeprazole 20 mg capsule,delayed 20 mg PO DAILY #90 caps 07/25/22 release clonazepam 0.5 mg tablet 0.25 mg PO BEDTIME PRN anxiety #30 08/23/22 tabs metoprolol tartrate 50 mg tablet 50 mg PO TID #270 tabs 08/23/22 amlodipine 2.5 mg-benazepril 10 mg 1 cap PO DAILY #30 caps 08/29/22 capsule Allergies Allergy/AdvReac Type Severity Reaction Status Date / Time droperidol [From Inapsine] Allergy Verified 08/13/22 19:01 prochlorperazine Allergy Verified 08/13/22 19:01 [From Compazine] trazadone Allergy Severe Chest Pain Uncoded 08/14/22 12:30 Review of Systems Review of Systems Narrative: GENERAL: Denies chills, fatigue, malaise, fever, sweats. HEENT: Denies sinus pain, ear pain, sore throat RESPIRATORY: Denies dyspnea, cough CARDIOVASCULAR: Denies chest pain, palpitations GASTROINTESTINAL: Denies nausea, vomiting, abdominal pain : Denies dysuria, frequency, hematuria MUSCULOSKELETAL: denies muscle or bony pain SKIN: Denies rash, skin lesions NEUROLOGIC: Denies weakness, numbness ROS Unobtainable: All systems reviewed & are unremarkable except as noted in HPI and below Patient History Medical History Adjustment disorder with anxiety Adjustment insomnia Emphysema lung History of cardiac dysrhythmia Hypertension Impaired fasting blood sugar Liver enzyme elevation Middle lobe syndrome Mitral valve prolapse Mixed dyslipidemia Peripheral neuropathy Surgical History History of lung surgery Family History Mother Hypertension Father Lung disease Atrial fibrillation Grandmother Heart attack Social History household members: spouse Smoking Status: Never smoker Smoking Status: Never smoker alcohol intake frequency: 0-2 drinks per day Substance Use Type: marijuana Exam Narrative Exam Narrative: GENERAL: in no distress, not toxic not dyspneic HEAD: Normocephalic. EYES: Pupils equal round No scleral icterus. ENT: Mucous membranes moist. NECK: Trachea midline. CARDIOVASCULAR: Regular rate and rhythm without murmurs RESPIRATORY: Clear to auscultation. Breath sounds equal bilaterally. No wheezes, rales, or rhonchi. GASTROINTESTINAL: Abdomen soft, non-tender EXTREMITIES: No gross deformities. NEURO: AOx4. SKIN: Warm and dry PSYCH: Not anxious, is cooperative Initial Vital Signs Initial Vital Signs: Vital Signs Temperature 97.1 F L 08/30/22 18:01 Pulse Rate 90 08/30/22 18:01 Respiratory Rate 18 08/30/22 18:01 Blood Pressure 206/98 H 08/30/22 18:01 Pulse Oximetry 100 08/30/22 18:01 Oxygen Delivery Method 08/30/22 18:01 Course Course Course Narrative: No new issues during course of stay Decision to Admit Date: 08/31/22 Decision to Admit time: 00:45 Orders Ordered: ED Orders 08/31/22 04:14 COVID19 -Nasal RAPID/Pre-Proc Stat Reevaluation(s) Reevaluation #1: Reviewed results with patient and agrees for admitted for hypertensive urgency and blood pressure control Time: 00:46 Reevaluation #2: For the past 3 hours patient blood pressure has improved. She was informed that her medication she started night may take a few hours to be effective. In the past 3 hours her systolic blood pressure has improved and ranged between 140-160 and her diastolic 70-80. She is been resting comfortably. No distress no chest or throat pain. She desires to go home and not be admitted at this time. She will recheck her blood pressure later today with her new medication that she st myriam, Sunil Consultations Consultation #1: Spoke with hospitalist, Emma Neil, will hold on admission and would like patient to be observed through the monogram machine operator late night to determine improvement of blood pressure after her new medication. Vital Signs Vital signs: Vital Signs - 8 hr 08/31/22 01:47 08/31/22 03:02 08/31/22 03:32 Pulse Rate 68 66 72 Respiratory Rate 18 16 16 Blood Pressure 163/87 H 149/79 H 148/74 H Pulse Oximetry 100 99 98 Oxygen Delivery Method Room Air Room Air 08/31/22 04:30 Pulse Rate 72 Respiratory Rate 18 Blood Pressure 150/70 H Pulse Oximetry 98 Oxygen Delivery Method Room Air MDM - Chest Pain Differential Diagnosis Differential diagnosis: Likely stable angina, unstable angina pectoris, atypical chest pain, chest pain and other (Hypertensive urgency) Lab Data Result diagrams: 08/30/22 19:15 08/30/22 19:15 Labs: Lab Results 08/30/22 08/30/22 08/31/22 Range/Units 19:15 19:15 01:15 WBC 10.9 (4.5-11.0) X10^3/uL RBC 5.11 (4.0-5.2) X10^6/uL Hgb 14.9 (12.0-16.0) g/dL Hct 42.7 (36-46) % MCV 83.6 (80-100) fL MCH 29.1 (26-34) PG MCHC 34.8 (30-36) % RDW 13.3 (11.6-14.8) % Plt Count 273 (150-400) X10^3/uL Neut % (Auto) 73.3 (50-75) % Lymph % (Auto) 20.8 L (25-40) % Bullock % (Auto) 4.7 (3-14) % Eos % (Auto) 0.6 L (2-4) % Baso % (Auto) 0.6 (0-2) % Neut # (Auto) 8000 H (1611-6763) /uL Lymph # (Auto) 2300 (6080-2917) /uL Bullock # (Auto) 500 (0-900) /uL Eos # (Auto) 100 (0-450) /uL Baso # (Auto) 100 (0-100) /uL Sodium 141 (137-145) mmol/L Potassium 3.8 (3.4-5.1) mmol/L Chloride 104 (98-107) mmol/L Carbon Dioxide 24 (22-32) mmol/L BUN 9 (7-17) mg/dL Creatinine 0.57 (0.52-1.04) mg/dL Estimated GFR > 60 (>60) mL/min BUN/Creatinine Ratio 15.8 (6-22) Glucose 103 H (70-100) mg/dL Calcium 9.7 (8.4-10.2) mg/dL Magnesium 2.0 (1.6-2.3) mg/dL Total Bilirubin 2.0 H (0.2-1.3) mg/dL AST 45 H (14-36) IU/L ALT 44 H (<35) IU/L Alkaline Phosphatase 92 (38-126) U/L Total Creatine Kinase 39 (30-135) U/L CK-MB (CK-2) TNP CK-MB (CK-2) Rel Index TNP Troponin I < 0.012 (0.01-0.034) ng/mL Total Protein 8.7 H (6.3-8.2) g/dL Albumin 4.8 (3.5-5.0) g/dL Globulin 3.9 (1.7-4.1) g/dL Albumin/Globulin Ratio 1.2 (1.0-2.8) Lipase 77 (23-300) U/L SARS-CoV-2 (PCR) Negative (Negative) Imaging Data Chest x-ray: Radiologist's Impression: [address] [address] XRay Report Signed Patient: Gloria Castano MR#: [id number] : 1965 Acct:[id number] Age/Sex: 57 / F Date of Service: 08/30/22 Loc: ED Accession Number: [id number] ?? Procedure: XR chest 1V Ordering Provider: Lindsay Maxwell D.O. PROCEDURE:? XR CHEST 1V ? INDICATIONS:? chest pain ? TECHNIQUE:? One view of the chest was acquired.? ? COMPARISON:? [facility], , XR CHEST 1V, 08/19/2022, 20:18. ? FINDINGS:? ? Surgical changes and devices:? None.? ? Lungs and pleura:? Lungs are clear.? No pleural effusions or pneumothorax.? ? Mediastinum:? Mediastinal contours appear normal.? Heart size is normal.? ? Bones and chest wall:? No suspicious bony lesions.? Overlying soft tissues appear unremarkable.? Mild dextroconvex curvature of the thoracic spine. ? IMPRESSION:? No acute cardiopulmonary abnormality. ? ? ? Approved by: Isaias Dior M.D. on 08/30/2022 at 20:12? ECG Data Interpretation: Normal sinus rhythm rate [address] elevation or depression MDM Narrative Medical decision making narrative: Appropriate for discharge home. Exam and laboratory studies and imaging otherwise reassuring. Patient neurovascularly intact. Blood pressure did eventually improved with patient's new medication Lotrel. Patient will call family doctor office today to make appointment for re-evaluation within a week. Also to inform office of her visit and blood pressure did improve today/tonight. Not toxic discharge. Return precautions reviewed with her. She desires disch arge home Discharge Plan Departure Patient Disposition: Home Clinical Impression: Hypertension Instructions: High Blood Pressure Activity Restrictions/Additional Instructions: See family doctor within a week for re-evaluation. Call your family doctor office today for appointment and to inform them your visit here last night and your blood pressure did improve with the new medication. Continue home medications. Return if worse for any questions or concerns. Prescriptions: No Action omeprazole 20 mg capsule,delayed release(DR/EC) 20 mg PO DAILY Qty: 90 0RF amlodipine-benazepril 2.5-10 mg capsule 1 cap PO DAILY Qty: 30 2RF clonazepam 0.5 mg tablet 0.25 mg PO BEDTIME PRN (Reason: anxiety) Qty: 30 0RF Rx Instructions: administer 30 minutes before bedtime metoprolol tartrate 50 mg tablet 50 mg PO TID Qty: 270 0RF loratadine [Claritin] 10 mg tablet 10 mg PO DAILY PRN (Reason: Allergic Symptoms) alpha lipoic acid 200 mg capsule 200 mg PO DAILY tramadol 50 mg tablet 50 mg PO DAILY PRN (Reason: pain) H2Q CoQ10 200 mg/gram powder 200 mg PO DAILY multivitamin Capsule 1 cap PO DAILY turmeric 400 mg capsule 400 mg PO DAILY omega-3 fatty acids [Fish Oil Concentrate] 1,000 mg capsule 1,000 mg PO DAILY milk thistle 150 mg capsule 300 mg PO DAILY Rx Instructions: give with meal/snack gabapentin 400 mg capsule 400 mg PO TID PRN albuterol sulfate 90 mcg/actuation HFA aerosol inhaler 2 puff inhalation Q4-6H PRN (Reason: shortness of breath or wheezing) Qty: 8.5 3RF Referrals: Reagan Steen ARNP [Primary Care Provider] - Visit Report Forms: Patient Portal/API
--- NOTE | 2022-08-31 01:36 | PC.NURSE ---
pt reported that while waiting she continued her regular meds and took her own norvasc and metoprolol.
[2022-08-31 01:47] VITALS: BP 163/87; PULSE 68; RESP 18; O2SAT 100
[2022-08-31 02:00] LABS: COVID19 -Nasal RAPID Negative (Negative)
[2022-08-31 03:02] VITALS: BP 149/79; PULSE 66; RESP 16; O2SAT 99
[2022-08-31 03:32] VITALS: BP 148/74; PULSE 72; RESP 16; O2SAT 98
[2022-08-31 04:30] VITALS: BP 150/70; PULSE 72; RESP 18; O2SAT 98
== END 2022-08-31 04:56 | disposition home or self-care (01) ==
PROVIDERS: Emergency Medicine; Emergency Provider Emergency Medicine; PCP Registered Nurse Diabetes Educator
DX: I10 Essential (primary) hypertension (principal); R07.9 Chest pain, unspecified; M54.2 Cervicalgia; Z20.822 Contact with and (suspected) exposure to COVID-19
CPT/HCPCS: 71045; 80053; 82550; 83690; 83735; 84484; 85025; 87635; 93005; 93010; 99283; 99284; C9803

== ENCOUNTER → 2023-06-25 13:27 | Outpatient (CLI) | payer MEDICARE, SELFPAY ==
[2023-04-10 13:04] VITALS: BMI 17.5
--- NOTE | 2023-06-25 13:28 | DI.US.S_ITS ---
ULTRASOUND OF LEFT BREAST: 06/25/2023 CLINICAL: Left breast biopsy follow up. Comparison is made to exams dated: 06/25/2023 mammogram - [facility], 08/29/2022 mammogram, 08/29/2022 ultrasound biopsy - [facility], 08/22/2022 ultrasound, 08/22/2022 mammogram, and 08/03/2022 mammogram - [facility]. Color flow and real-time ultrasound of the left breast were performed. Siu scale images of the real-time examination were reviewed. No significant abnormalities were seen sonographically in the left breast. IMPRESSION: NEGATIVE There is no sonographic evidence of malignancy. There is no abnormality seen in the left breast to correspond with the now resolved left breast focal asymmetry and site of biopsy. This is compatible with reported benign biopsy results. A 1 year screening mammogram is recommended. Findings and recommendations were conveyed to the patient during today's evaluation. This exam was interpreted at Station ID: [id number]. Electronically Signed By: Ernesto José M.D. at/:06/25/2023 15:54:33 letter sent: Normal Exam Ultrasound BI-RADS: 1 Negative
--- NOTE | 2023-06-25 13:44 | DI.MG.S_ITS ---
BILATERAL DIGITAL DIAGNOSTIC MAMMOGRAM 3D/2D SHORT-TERM FOLLOW-UP: 06/25/2023 CLINICAL: Short term follow up of the left breast, due for bilateral imaging. Comparison is made to exams dated: 08/29/2022 mammogram - [facility], 08/22/2022 mammogram, and 08/03/2022 mammogram - [facility]. Both breasts are heterogeneously dense, which may obscure small masses (category c / 51-75% glandular tissue). The previously described 9 mm oval asymmetry with an obscured and circumscribed margin in the left breast at 6 o'clock anterior depth is no longer seen. This is not seen in additional views. This correlates with site of the previous biopsy. There is a biopsy clip associated at the site of previous asymmetry and biopsy. No other significant masses, calcifications, or other findings are seen in either breast. IMPRESSION: INCOMPLETE: NEEDS ADDITIONAL IMAGING EVALUATION An ultrasound is recommended to confirm the no longer seen oval asymmetry in the left breast anterior depth which correlated with site of previous biopsy and is scheduled to immediately follow this examination. Based on the Tyrer Cuzick model (a risk assessment model) the patient's lifetime risk is 9.9% and her 10 year risk is 4.0%. According to the ACR, ACS, and NCCN guidelines, an annual breast MRI exam along with mammogram is recommended if the patient's lifetime risk is 20% or greater. This exam was interpreted at Station ID: [id number]. NOTE: For mammograms, a report in lay terms will be sent to the patient. Approximately 15% of breast malignancies will not be visualized mammographically. In the management of a palpable breast mass, a negative mammogram must not discourage biopsy of a clinically suspicious lesion. Electronically Signed By: Ernesto José M.D. aty/:06/25/2023 15:51:50 ACR BI-RADS Category 0: Incomplete 3340F
== END ==
PROVIDERS: PCP Registered Nurse Diabetes Educator; Referring Provider Registered Nurse Diabetes Educator; Visit Provider Registered Nurse Diabetes Educator
DX: R92.2 Inconclusive mammogram; N63.20 Unspecified lump in the left breast, unspecified quadrant; Z87.898 Personal history of other specified conditions; Z92.89 Personal history of other medical treatment
CPT/HCPCS: 76642; 77066; G0279

== ENCOUNTER → 2023-07-05 10:17 | Outpatient (CLI) | payer MEDICARE, SELFPAY ==
[2023-04-10 13:04] VITALS: BMI 17.5
--- NOTE | 2023-07-05 10:18 | DI.CT.S_ITS ---
PROCEDURE: CT CHEST ABD PEL W CON INDICATIONS: Evaluation of enlarged retrocrural lymph node by prior imaging report from coronary artery calcium scoring CT scanning elsewhere. TECHNIQUE: After the administration of intravenous contrast, 5 mm thick sections acquired from the lung apices to the symphysis. 5 mm coronal and sagittal reformats were performed, with additional 7 mm MIP reformats through the lungs. For radiation dose reduction, the following was used: automated exposure control, adjustment of mA and/or kV according to patient size. COMPARISON: Outside Film, CT, CT ANGIO CHEST PE, 09/27/2018, 20:43. [facility], RG, CT CALCIUM SCORING, 06/17/2023, 12:55. FINDINGS: Image quality: Excellent. CHEST: Lungs and pleura: No acute airspace opacities. Stable lateral segment right middle lobe lung scarring, mild. No pleural effusions or pneumothorax. Central and peripheral airways appear patent and normal in caliber. Mediastinum: Heart size is normal. No pericardial effusion. No mediastinal or hilar adenopathy by size criteria. Thoracic aorta and central pulmonary arteries are normal in size. Esophagus is normal in caliber. No hiatal hernia. There is stable appearance of a 1.7 cm area of soft tissue radiodensity at the high right retrocrural soft tissues containing a 1.5 mm calcification with reference to a prior CT scanning from 09/27/18 at [facility]. Chest wall: No axillary or supraclavicular adenopathy by size criteria. Thyroid gland appears normal where well seen. Calcification within left breast parenchyma seen centered on image 42 of series 2. ABDOMEN: Solid organs: Liver is normal in size and enhancement. Gallbladder previously resected . Biliary system is non dilated. Pancreas enhances normally. Spleen is normal in size and enhancement. No adrenal nodules. Kidneys demonstrate normal size and enhancement, without hydronephrosis. Peritoneum and bowel: Bowel loops demonstrate normal wall thickness and caliber. No free fluid or air. Nodes and vessels: No retroperitoneal or mesenteric adenopathy by size criteria. Aorta and inferior vena cava are normal in size. Miscellaneous: No ventral hernias. PELVIS: Genitourinary: Bladder wall thickness is normal. Miscellaneous: No inguinal hernias or adenopathy. Bones: No suspicious bony lesions. No vertebral body compression fractures. IMPRESSION: A comparison study from 09/27/18, CT scan from [facility], was obtained for review and the area of soft tissue prominence and punctate calcification within the superior right retrocrural fatty soft tissues was present at that time and has not changed on the current study. Benign etiology, no follow-up recommended. Elsewhere prior cholecystectomy and no acute disease. Dictated by: Aries Snider M.D. on 07/05/2023 at 16:03 Approved by: Aries Snider M.D. on 07/05/2023 at 16:11
== END ==
PROVIDERS: PCP Registered Nurse Diabetes Educator; Referring Provider Registered Nurse Diabetes Educator; Visit Provider Registered Nurse Diabetes Educator
DX: R59.0 Localized enlarged lymph nodes (principal); Z90.49 Acquired absence of other specified parts of digestive tract
CPT/HCPCS: 71260; 74177

== ENCOUNTER → 2024-12-24 12:46 | Outpatient (CLI) | payer MEDICARE, SELFPAY ==
[2023-04-10 13:04] VITALS: BMI 17.5
--- NOTE | 2024-12-24 12:47 | DI.MG.S_ITS ---
MM screening mammo BI: 12/24/2024. BI-RADS: 2 CLINICAL: 59-year old female for bilateral screening mammogram. Tyrer-Cuzick lifetime risk of 5.5%. No personal or first-degree family history of breast cancer. The patient had a prior left breast biopsy. PRIOR EXAMS 06/25/2023, 08/29/2022, 08/22/2022, 08/03/2022. MAMMOGRAPHY TECHNIQUE: 2D and 3D (tomosynthesis) digital mammographic views obtained, with additional images as needed for full coverage. Current study was also evaluated with a Computer Aided Detection (CAD) system. DENSITY C. The breasts are heterogeneously dense, which may obscure small masses. MAMMOGRAPHY FINDINGS Right: No suspicious mass, asymmetry, microcalcification, or other abnormality seen. Left: Biopsy marker present on the left. No suspicious finding with benign findings noted. IMPRESSION: Right * No evidence of malignancy. Left * No evidence of malignancy with benign findings. RECOMMENDATIONS Bilateral * Annual screening mammography. OVERALL ASSESSMENT CATEGORY BI-RADS-2: Benign. The [employer] recommends annual screening mammography beginning at age 40 for women with average risk of breast cancer. ELECTRONICALLY SIGNED: Spike Dwyer M.D. on 12/25/2024 at 02:19:44 PM PT Interpreting Station ID: [id number]
== END ==
PROVIDERS: PCP Registered Nurse Diabetes Educator; Referring Provider Registered Nurse Diabetes Educator; Visit Provider Registered Nurse Diabetes Educator
DX: Z12.31 Encounter for screening mammogram for malignant neoplasm of breast (principal); R92.333 Mammographic heterogeneous density, bilateral breasts
CPT/HCPCS: 77063; 77067